=== PATIENT | male | born 1985 | race Hispanic/Latino ===

== ENCOUNTER 2017-03-05 07:44 | Emergency (ER) | payer OTHER ==
[2017-03-05 07:44] VITALS: BMI 22.3
[2017-03-05] MEDS ORDERED: Sodium Chloride 0.9% 1,000 ML IV STA (08:06)
[2017-03-05] MEDS ORDERED: HYDROmorphone 1 mg/ml ISec IVP ONE (08:07)
[2017-03-05] MEDS ORDERED: HYDROmorphone 1 mg/ml ISec ONE (08:08)
--- NOTE | 2017-03-05 08:11 | ED PDOC ---
Arrival/HPI - General Chief Complaint: Abdominal Pain Time Seen by Provider: 03/05/17 08:01 Historian: Patient - History of Present Illness Narrative History of Present Illness (Text): 03/05/17 08:08 pt p/w + sudden onset (yesterday) mild right flank pain, non-radiating; pain worsen this morning, currently pain is 6-7/10; pt states no fever/chills/sweats , no cp/sob/palpitations, no abd pain, no n/v, no numbness/tingling, no urinary/ bowel changes, no incontience, no dysuria/hematuria; no fall/trauma/sick contact , no travel; pt states symptoms of the flank pain felt like his prior renal stone attack pain; pt's last flank pain flare up was a few months ago; pt denied other complaints; p t is here for further eval. Time/Duration: < week (1-2 days) Symptom Onset: Sudden Symptom Course: Worsening Quality: Tightness, Stabbing Severity Level: 7, Severe Activities at Onset: Rest Context: Home Past Medical History - Provider Review Nursing Documentation Reviewed: Yes - Travel History Have you recently traveled outside [place] w/in the past 3 mons?: No - Past History Past History: No Previous - Infectious Disease Hx of Infectious Diseases: None - Tetanus Immunization Tetanus Immunization: Unknown - Past Medical History Past Medical History: No Previous - Genitourinary/Gynecological Other/Comment: kidney stone - Psychiatric Hx Psychophysiologic Disorder: No Hx Anxiety: No Hx Bipolar Disorder: No Hx Depression: No Hx Emotional Abuse: No Hx Hallucinations: No Hx Panic Disorder: No Hx Post Traumatic Stress Disorder: No Hx Psychosis: No Hx Physical Abuse: No Hx Schizophrenia: No Hx Sexual Abuse: No Hx Substance Use: No - Surgical History Hx Joint Replacement: Yes (right hip) - Anesthesia Hx Anesthesia: Yes Hx Anesthesia Reactions: No Hx Malignant Hyperthermia: No - Suicidal Assessment Feels Threatened In Home Enviroment: No Family/Social History - Physician Review Nursing Documentation Reviewed: Yes Family/Social History: No Known Family HX Smoking Status: Heavy Smoker > 10 Cigarettes Daily Hx Alcohol Use: No Hx Substance Use: Yes (Marijuana) Hx Substance Use Treatment: No Allergies/Home Meds Allergies/Adverse Reactions: Allergies No Known Allergies Allergy (Verified 03/05/17 08:05) Home Medications: Home Meds Medication Instructions Recorded Confirmed No Known Home Med 03/05/17 03/05/17 Review of Systems - Review of Systems Constitutional: Normal Eyes: Normal ENT: Normal Respiratory: Normal Cardiovascular: Normal Gastrointestinal: Normal Genitourinary Male: Normal Musculoskeletal: Other (right flank pain) Skin: Normal Neurological: Normal Endocrine: Normal Hemo/Lymphatic: Normal Psychiatric: Normal Physical Exam Vital Signs Reviewed: Yes Vital Signs Temp Pulse Resp BP Pulse Ox 03/05/17 09:30 71 17 153/61 H 100 03/05/17 07:59 97.5 F L 68 18 145/97 H 97 Temperature: Afebrile Blood Pressure: Hypertensive Pulse: Regular Respiratory Rate: Normal Appearance: Positive for: Well-Appearing, Uncomfortable, Other (alert/awake, GCS = 15, oriented x 3, uncomfortable, mild distress due to pain, cooperative, follows commands with ease) Pain Distress: Mild Mental Status: Positive for: Alert and Oriented X 3 - Systems Exam Head: Present: Atraumatic, Normocephalic Pupils: Present: PERRL Extroacular Muscles: Present: EOMI Conjunctiva: Present: Normal Ears: Present: Normal Mouth: Present: Moist Mucous Membranes, Normal Teeth Pharnyx: Present: Normal, Other (uvula/tongue are midline, no exudate/lesions, no drooling/stridor) Nose (External): Present: Atraumatic Nose (Internal): Present: Normal Inspection Neck: Present: Normal Range of Motion, Trachea Midline. No: MIDLINE TENDERNESS Respiratory/Chest: Present: Clear to Auscultation, Good Air Exchange Cardiovascular: Present: Regular Rate and Rhythm, Normal S1, S2 Abdomen: Present: Normal Bowel Sounds, Other (well nourished male, no focal tenderness, no masses/rebound/guarding/rigidity, no kapadia's sign, no mcburney' s point tenderness) Back: Present: Normal Inspection, CVA Tenderness (right CVAT; no midline tenderness, no step off, intact ROM). No: Midline Tenderness Upper Extremity: Present: Normal Inspection, Normal ROM, NORMAL PULSES, Neurovascularly Intact, Capillary Refill < 2s Lower Extremity: Present: Normal Inspection, NORMAL PULSES, Neurovascularly Intact, Capillary Refill < 2 s Neurological: Present: GCS=15, CN II-XII Intact, Speech Normal Skin: Present: Warm, Normal Color, Other (cap refill < 1sec, no uclerations, no petechiae). No: Rashes Psychiatric: Present: Alert, Oriented x 3 Medical Decision Making ED Course and Treatment: 03/05/17 08:15 Impression: right flank pain i have consider all the differential diagnosis regarding pt's chief medical complaints/clinical findings, including but are not limited to: right flank pain ; r/o stone, r/o infection, unlikely appy A/P: right flank pain - labs - iv - ct - ua - observe - supportive care 03/05/17 13:46 Dr Baron Garces is expecting patient and will be taking patient up to Same day surgery for further procedure will admit pt to same day surgery pt is currently comfortable pt is made aware of his medical results pt is encouraged fluids pt will f/u as directed Re-evaluation Time: 11:30 Reassessment Condition: Improved - Lab Interpretations Lab Results: 03/05/17 08:00 03/05/17 08:00 Lab Results 03/05/17 09:43: Urine Color Yellow, Urine Appearance Clear, Urine pH 6.5, Ur Specific [place] 1.020, Urine Protein Negative, Urine Glucose (UA) Negative, Urine Ketones Negative, Urine Blood Trace-intact H, Urine Nitrate Negative, Urine Bilirubin Negative, Urine Urobilinogen 0.2, Ur Leukocyte Esterase Negative , Urine RBC 1 - 3, Urine WBC Negative, Ur Epithelial Cells None, Urine Bacteria Few 03/05/17 08:00: PT 11.5, INR 1.00, APTT 30.7 03/05/17 08:00: Sodium 147, Potassium 4.2, Chloride 107, Carbon Dioxide 29, Anion Gap 15, BUN 16, Creatinine 1.0, Est GFR ( Amer) > 60, Est GFR (Non- Af Amer) > 60, Random Glucose 89, Calcium 10.6 H, Total Bilirubin 0.5, AST 31, ALT 36, Alkaline Phosphatase 90, Total Protein 7.8, Albumin 4.5, Globulin 3.3, Albumin/Globulin Ratio 1.4, Lipase 56 03/05/17 08:00: WBC 7.7 D, RBC 5.13, Hgb 15.6, Hct 46.0, MCV 89.7, MCH 30.4, MCHC 33.9, RDW 12.8, Plt Count 241, MPV 9.3, Gran % 59.7, Lymph % (Auto) 31.1, [place] % (Auto) 6.1 H, Eos % (Auto) 2.7, Baso % (Auto) 0.4, Gran # 4.62, Lymph # 2.4, [place] # 0.5, Eos # 0.2, Baso # 0.03 I have reviewed the lab results: Yes Interpretation: All labs normal - RAD Interpretation Radiology Orders: 03/05/17 08:06 ABD & PELVIS W/O PO OR IV CONT [CT] Stat This CT exam was performed using one or more of the following dose reduction techniques: Automated exposure control, adjustment of the mA and/or kV according to patient size, and/or use of iterative reconstruction technique. FINDINGS: LOWER THORAX: There is dependent atelectasis in the lung bases. LIVER: Normal in size. No gross lesion or ductal dilatation. GALLBLADDER AND BILE DUCTS: There are no calcified gallstones. PANCREAS: Normal in size. No calcifications or ductal dilatation. SPLEEN: Normal in size and appearance. ADRENALS: No discrete nodule. KIDNEYS AND URETERS: There is a 3 mm stone in the right distal ureteral proximal to the UV junction, moderate diffuse dilatation of the right ureteral, moderate hydronephrosis, mild edema and enlargement of the right kidney and mild perinephric fat stranding. The left kidney is normal in size without nephrolithiasis or hydronephrosis. VASCULATURE: No aortic aneurysm. BOWEL: The small bowel loops are all on the right side of the abdomen. The cecum is located to in the left mid abdomen. The ileocecal junction is normal. There is no evidence of bowel dilatation or obstruction. There is colonic diverticulosis without CT evidence for acute diverticulitis. . APPENDIX: Located in the left mid abdomen. Normal appendix. PERITONEUM: No free fluid. No free air. LYMPH NODES: No enlarged lymph nodes. BLADDER: Grossly normal in appearance. REPRODUCTIVE: The prostate gland is normal in size. BONES: No acute fracture. Multilevel Schmorl's nodes in the lower thoracic spine. Status post right hip arthroplasty. Old right inferior pubic ramus fracture. There is expansion of the left ischium which could be related to fibrous dysplasia or Paget's disease. There is also left hip dysplasia. OTHER FINDINGS: There are bilateral fat containing inguinal hernias. . IMPRESSION: 1. Findings are consistent with recent passage of 3 mm right renal stone which is now seen in the distal ureteral proximal to the UV junction with resultant moderate diffuse dilatation of the right ureteral, moderate hydronephrosis and perinephric inflammatory changes. 2. Malrotation. 3. Colonic diverticulosis without CT evidence for acute diverticulitis. 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 No Sleep Is patient sleeping during reassessment? No Presence of Pain Presence of Pain Yes Pain Scale Used Pain Scale Used Numeric Location Upper or Lower Lower Pain Location Body Site Back Description Intensity of Pain at present 6 IVP Administration Document 03/05/17 08:15 JO (Rec: 03/05/17 08:15 [id number] Charges for Administration # of IVP Administrations 1 Sodium Chloride (Sodium Chloride 0.9%) 1,000 mls @ 999 mls/hr IV .Q1H1M STA Stop: 03/05/17 09:06 Last Admin: 03/05/17 08:13 Dose: 999 mls/hr eMAR Start Stop Document 03/05/17 08:13 JOL (Rec: 03/05/17 08:14 [id number] Intravenous Solution Start Date 03/05/17 Start Time 08:13 End Date 03/05/17 End time 09:14 Total Infusion Time 61 Sodium Chloride (Sodium Chloride 0.45%) 1,000 mls @ 80 mls/hr IV .[id number] [facility] Ketorolac Tromethamine (Toradol) 30 mg IVP STAT STA Stop: 03/05/17 08:07 Last Admin: 03/05/17 08:14 Dose: 30 mg MAR Pain Assessment Document 03/05/17 08:14 JOL (Rec: 03/05/17 08:14 [id number] Pain Reassessment Is this a pain reassessment? No Sleep Is patient sleeping during reassessment? No Presence of Pain Presence of Pain Yes Pain Scale Used Pain Scale Used Numeric Location Upper or Lower Lower Pain Location Body Site Back Description Intensity of Pain at present 6 IVP Administration Document 03/05/17 08:14 JOL (Rec: 03/05/17 08:14 [id number] Charges for Administration # of IVP Administrations 1 Ondansetron HCl (Zofran Inj) 4 mg IVP STAT STA Stop: 03/05/17 08:08 Last Admin: 03/05/17 08:15 Dose: 4 mg IVP Administration Document 03/05/17 08:15 JOL (Rec: 03/05/17 08:15 [id number]) Charges for Administration # of IVP Administrations 1 Oxycodone/Acetaminophen (Percocet 5/325 Mg Tab) 1 tab PO Q6H PRN PRN Reason: Pain, moderate (4-7) Stop: 03/08/17 13:29 Disposition/Present on Arrival - Present on Arrival Any Indicators Present on Arrival: No History of DVT/PE: No History of Uncontrolled Diabetes: No Urinary Catheter: No History of Decub. Ulcer: No History Surgical Site Infection Following: None - Disposition Have Diagnosis and Disposition been Completed?: Yes Diagnosis: Ureteral stone with hydronephrosis, Flank pain Disposition: HOSPITALIZED Disposition Time: 11:30 Patient Plan: Admission (Same day surgery) Condition: STABLE Discharge Instructions (ExitCare): Renal Colic (ED), Hydronephrosis (ED), Ureteral Stones (ED) Print Language: ZAMBIAN Additional Instructions: Make sure to see your doctor in 1-2 days DRINK PLENTY OF FLUIDS take your medications as prescribed RETURN TO ED IF worse pain, cant breath, persistent vomiting, high fever >101- 102 for hours, altered behavior, unable to urinate, heavy/persistent bleeding, passing out, chest pain, or other medical emergencies Forms: [employer] (Pakistani)
[2017-03-05 08:28] LABS: BASO # 0.03 K/mm3 (0.0-2.0); BASO % 0.4 % (0.0-3.0); EOS # 0.2 (0.0-0.7); EOS % 2.7 % (1.5-5.0); GRAN # 4.62 (1.4-6.5); GRAN % 59.7 % (50.0-68.0); HEMOGLOBIN 15.6 g/dL (14.0-18.0); LYMPH # 2.4 (1.2-3.4); LYMPH % 31.1 % (22.0-35.0); MEAN CELL VOLUME 89.7 fl (80.0-105.0); MEAN CORPUSCULAR HEMOGLOBIN 30.4 pg (25.0-35.0); MEAN CORPUSCULAR HGB CONC 33.9 g/dl (31.0-37.0); MEAN PLATELET VOLUME 9.3 fl (7.0-11.0); MONO # 0.5 (0.1-0.6); MONO % 6.1 % (1.0-6.0); RBC 5.13 10^6/uL (3.5-6.1); RED CELL DISTRIBUTION WIDTH 12.8 % (11.5-14.5); WHITE BLOOD COUNT 7.7 10^3/ul (4.5-11.0)
[2017-03-05 08:39] LABS: ALB/GLOB RATIO 1.4 (1.1-1.8); ALBUMIN 4.5 g/dL (3.0-4.8); ALT/SGPT 36 U/L (7-56); AST/SGOT 31 U/L (17-59); BLOOD UREA NITROGEN 16 mg/dL (7-21); CALCIUM 10.6 mg/dL (8.4-10.5); GFR AFRICAN-AMERICAN > 60; GFR NON-AFRICAN AMERICAN > 60; LIPASE 56 U/L (23-300)
[2017-03-05 08:43] LABS: PARTIAL THROMBOPLASTIN TIME 30.7 Seconds (25.1-36.5); PROTHROMBIN TIME 11.5 SECONDS (9.4-12.5)
--- NOTE | 2017-03-05 09:22 | CT ---
PROCEDURE: CT Abdomen and Pelvis without intravenous contrast HISTORY: right flank pain, hx of stones COMPARISON: 09/16/2014 TECHNIQUE: CT scan of the abdomen and pelvis was performed without administration of intravenous contrast. Oral contrast was administered. Coronal and sagittal reformatted images were obtained. Radiation dose: Total exam DLP = 362.05 mGy-cm. This CT exam was performed using one or more of the following dose reduction techniques: Automated exposure control, adjustment of the mA and/or kV according to patient size, and/or use of iterative reconstruction technique. FINDINGS: LOWER THORAX: There is dependent atelectasis in the lung bases. LIVER: Normal in size. No gross lesion or ductal dilatation. GALLBLADDER AND BILE DUCTS: There are no calcified gallstones. PANCREAS: Normal in size. No calcifications or ductal dilatation. SPLEEN: Normal in size and appearance. ADRENALS: No discrete nodule. KIDNEYS AND URETERS: There is a 3 mm stone in the right distal ureteral proximal to the UV junction, moderate diffuse dilatation of the right ureteral, moderate hydronephrosis, mild edema and enlargement of the right kidney and mild perinephric fat stranding. The left kidney is normal in size without nephrolithiasis or hydronephrosis. VASCULATURE: No aortic aneurysm. BOWEL: The small bowel loops are all on the right side of the abdomen. The cecum is located to in the left mid abdomen. The ileocecal junction is normal. There is no evidence of bowel dilatation or obstruction. There is colonic diverticulosis without CT evidence for acute diverticulitis. . APPENDIX: Located in the left mid abdomen. Normal appendix. PERITONEUM: No free fluid. No free air. LYMPH NODES: No enlarged lymph nodes. BLADDER: Grossly normal in appearance. REPRODUCTIVE: The prostate gland is normal in size. BONES: No acute fracture. Multilevel Schmorl's nodes in the lower thoracic spine. Status post right hip arthroplasty. Old right inferior pubic ramus fracture. There is expansion of the left ischium which could be related to fibrous dysplasia or Paget's disease. There is also left hip dysplasia. OTHER FINDINGS: There are bilateral fat containing inguinal hernias. . IMPRESSION: 1. Findings are consistent with recent passage of 3 mm right renal stone which is now seen in the distal ureteral proximal to the UV junction with resultant moderate diffuse dilatation of the right ureteral, moderate hydronephrosis and perinephric inflammatory changes. 2. Malrotation. 3. Colonic diverticulosis without CT evidence for acute diverticulitis.
[2017-03-05 09:53] LABS: PH,URINE 6.5 (4.7-8.0); URINE APPEARANCE CLEAR (CLEAR); URINE BILIRUBIN NEGATIVE (NEGATIVE); URINE BLOOD TRACE-INTACT (NEGATIVE); URINE COLOR YELLOW (YELLOW); URINE GLUCOSE (UA) NEGATIVE (NEGATIVE); URINE LEUKOCYTE ESTERASE NEGATIVE Leu/uL (NEGATIVE); URINE NITRATE NEGATIVE (NEGATIVE); URINE PROTEIN NEGATIVE mg/dL (<30 mg/dL); URINE UROBILINOGEN 0.2 E.U./dL (<1 E.U./dL)
[2017-03-05 09:58] LABS: URINE BACTERIA FEW (NEG); URINE WBC NEGATIVE /hpf (0-6)
[2017-03-05] MEDS ORDERED: Midazolam 2 MG/2 ML VIAL ONE ×3 (10:25→12:36)
[2017-03-05] MEDS ORDERED: Lidocaine 2% Inj (20ml) ONE ×2 (10:25→12:42)
[2017-03-05] MEDS ORDERED: Iodixanol 320 MG/ML 100 ML BOTTLE IV ONE (10:26)
[2017-03-05] MEDS ORDERED: HEPARIN SODIUM/NS 2,000 ML IV ONE (10:26)
[2017-03-05] MEDS ORDERED: Oxycodone/Acetaminophen 5/325 mg Tab PO PRN (13:28)
[2017-03-05] MEDS ORDERED: Sodium Chloride 0.45% 1,000 ML IV SCH (13:30)
[2017-03-05 14:23] VITALS: RESP 18; O2SAT 98
[2017-03-05 16:28] VITALS: BP 141/83; PULSE 64; TEMP 98.2
--- NOTE | 2017-03-09 10:07 | VASCULAR ---
PROCEDURE: 1. Right nephrostomy tube placement. 2. Distal right ureter dilatation HISTORY: Impacted stone at the right UVJ with moderate hydronephrosis. Unable to treat via cystoscopy. PHYSICIAN(S): Wayne Garces MD. TECHNIQUE: The relative risks and indications of the procedure were explained to the patient and consent obtained. The patient was placed prone on the arteriogram table and the right back and flank prepped and draped in the usual sterile fashion. Conscious sedation and monitoring were provided throughout the procedure by a nurse. A single pass with a 21-gauge needle was performed and the right renal pelvis was entered. Clear urine was aspirated. Contrast was injected and an antegrade pyelogram performed. A second puncture site involving a right lower polecalyx was selected for tube placement. 1% Xylocaine was used to anesthetize the skin and soft tissues. An 18-gauge needle was advanced under fluoroscopy into a right lower polecalyx. A 0.035 angled guidewire was coiled within the renal pelvis. Next a 5 Brazilian angled catheter was advanced down the right ureter to the UVJ. There is an impacted 5 mm stone in the right UVJ. With some difficulty a guidewire was passed through the obstructing stone. Next 4 and 5 mm balloons were used to dilate the right UVJ and attempt to displace the obstructing right UVJ stone. The stone could not be dislodged. A 10 Brazilian nephrostomy tube was coiled in the right renal pelvis. The tube was flushed and secured. The patient tolerated the procedure well. FINDINGS: There is moderate to severe right hydronephrosis. There is a 5 mm obstructing stone impacted at the right UVJ. Spite attempts with balloons, the stone could not be dislodged. A 10 Brazilian nephrostomy tube was placed in the right renal pelvis. IMPRESSION: 1.Moderate to severe right hydronephrosis. A 5 mm impacted stone is noted at the right UVJ. This could not be dislodged removed with 4 and 5 mm balloons. 2. Right percutaneous nephrostomy tube placement
== END 2017-03-05 09:36 | disposition short-term general hospital (02) ==
LOC: ED 07:44
DX: N13.2 Hydronephrosis with renal and ureteral calculous obstruction (principal); R10.9 Unspecified abdominal pain
CPT/HCPCS: 50432; 50706; 74176; 80053; 81001; 83690; 85025; 85610; 85730; 96361; 96374; 96375; 99152; 99153; 99285; A4358; C1725; C1729; C1769; C1894; J1170; J1644; J1885; J2250; J2405; J3010; J7030; J7040; Q9967

== ENCOUNTER 2017-05-24 06:28 | Day surgery (SDC) | payer OTHER ==
[2017-05-05 12:14] VITALS: BMI 22.4
[2017-05-24 07:11] LABS: BLOOD UREA NITROGEN 15 mg/dL (7-21); CALCIUM 9.8 mg/dL (8.4-10.5); GFR AFRICAN-AMERICAN > 60; GFR NON-AFRICAN AMERICAN > 60
--- NOTE | 2017-05-24 08:25 | RAD ---
HISTORY: PRE-OP COMPARISON: No prior. FINDINGS: LUNGS: The lungs are clear. PLEURA: No significant pleural effusion identified, no pneumothorax apparent. CARDIOVASCULAR: Normal. OSSEOUS STRUCTURES: No significant abnormalities. VISUALIZED UPPER ABDOMEN: Normal. OTHER FINDINGS: None. IMPRESSION: No active pulmonary disease.
[2017-05-24] MEDS ORDERED: Propofol 10 mg/ml Inj (20 ML) ONE ×2 (10:02→14:38)
[2017-05-24] MEDS ORDERED: Midazolam 2 MG/2 ML VIAL ONE ×2 (10:03→14:38)
[2017-05-24] MEDS ORDERED: cefTRIAXone (Rocephin) 1 gm Inj ONE ×2 (11:18→14:38)
[2017-05-24] MEDS ORDERED: cefTRIAXone 1 gm 1 GM/100 ML BAG IVPB STA (11:21)
[2017-05-24] MEDS ORDERED: cefTRIAXone (Rocephin) 1 gm Inj IVPB ONE (11:23)
[2017-05-24] MEDS ORDERED: Morphine 2 mg/ml ISec IVP PRN (14:33)
[2017-05-24] MEDS ORDERED: Iohexol 240 (50 ml) ONE (14:38)
[2017-05-24] MEDS ORDERED: Gentamicin 80 mg/2mL Inj. ONE (14:38)
[2017-05-24] MEDS ORDERED: Rocuronium 10 mg/ml (5 ml) ONE (14:39)
[2017-05-24] MEDS ORDERED: Lactated Ringer's 1,000 ML IV SCH (14:45)
[2017-05-24] MEDS ORDERED: Glycopyrrolate 0.2 mg/ml (2ml vial) ONE (15:49)
[2017-05-24] MEDS ORDERED: Neostigmine Methylsulfate 3mg/3ml Syringe IV ONE (15:50)
[2017-05-24] MEDS ORDERED: Lidocaine 2% Jelly (Uro-Jet) ONE (16:36)
[2017-05-24 17:53] VITALS: PULSE 77; RESP 20; TEMP 97.9; O2SAT 94
[2017-05-24 18:39] VITALS: BP 147/83
--- NOTE | 2017-05-25 08:23 | OP ---
PROCEDURE DATE: 05/24/2017 PREOPERATIVE DIAGNOSES: Right ureteral calculus and urethral stricture. POSTOPERATIVE DIAGNOSES: Right ureteral calculus and urethral stricture. PROCEDURE: A nephrostogram, antegrade ureteroscopy and change of a nephrostomy tube. ATTENDING SURGEON: Jericho Dowd MD ASSISTED BY: Dr. Wayne Garces of Interventional Radiology. SPECIMENS: There were none. DRAINS: A nephrostomy tube in the right kidney. COMPLICATIONS: There were none. OPERATIVE FINDINGS: After informed consent was obtained, the patient was taken to the operating room, placed on the operating table. Anesthesia was administered. Patient was then placed in the left lateral decubitus position with left side down, the right side up. He was positioned and checked regarding pressure points and axillary roll was placed. He was then prepped and draped in usual sterile fashion. A nephrostogram was performed. There was noted to be an obstruction in the distal right ureter just above the bladder, tiny wisp of contrast was able to be seen passing into the bladder. At this point, multiple attempts were made to pass the wire beyond the obstruction. Dr. Garces assisted with this and after the wire was passed down the ureter, the nephrostomy was removed. Using Vizcaino catheter for support, we were able to pass a wire beyond the stone into and coiled in the bladder. A second open-ended catheter was then able to be passed and an Amplatz stiff wire was then able to be passed. It was also able to be passed beyond the stone and coiled in the bladder. With the two wires in place, a ureteral access sheath was then obtained. The ureteral access sheath obturator first was passed easily down the ureter, which was markedly dilated. The sheath was then removed and the ureteral access sheath with the obturator were able to be easily passed through the skin down the ureter to the point just above the stone over the second wire leaving the Amplatz wire outside as a safety wire. At this point, the obturator was removed. A flexible ureteroscope was obtained. The flexible ureteroscope was then passed over the wire through the access sheath down the ureter without difficulty. In the distal ureter, there was a large amount of edema noted. Multiple attempts were made to bypass the obstruction, a tiny movement could be seen, there was no visible stone. The ureteroscope was not able to be passed beyond the point of obstruction and no discrete calculus could be visualized. Therefore, no lithotripsy was performed. After multiple attempts to pass the scope were unsuccessful, the procedure was then abandoned. The ureteroscope and guidewire were then removed and Dr. Garces then was able to place a nephrostomy over the remaining wire. With the nephrostomy was in proper position, the wire was removed and the nephrostomy was secured by tying the string and curling the loop. Contrast was placed into the system and the nephrostomy was located in the right renal pelvis. The nephrostomy tube was then placed to straight drainage. Sterile dressing was then applied to the nephrostomy tube site and the nephrostomy tube was sutured into place with a silk suture. At this point, the patient was returned to the supine position. Attempts were made to pass a Mulligan catheter. A 16 Namibian was attempted, but was meeting resistance, I was able to pass a 14-Namibian catheter and drain patient's bladder, after the procedure, of approximately 250 mL of urine. The Mulligan was then removed. Patient received intravenous antibiotics prior to the start of the procedure. At this point, procedure was completed. The patient was awakened in the operating room and taken to the recovery room awake and in a stable condition. Jericho Dowd MD
--- NOTE | 2017-05-25 18:11 | RAD ---
PROCEDURE: Fluoroscopy up to 1 hr. HISTORY: ATTEMPTED LASER LITHOTRIPSY / NEPHROSTOMY CHANGE (RIGHT) COMPARISON: None TECHNIQUE: Total fluoroscopic time (continuous mode) utilized during the procedure 818.5 seconds. Total exam DLP: (mGy) 782.98 FINDINGS: Submitted images from the current procedure: 5.0 IMPRESSION: Less than 1 hr fluoroscopic time utilized during performance of the procedure.
== END 2017-05-24 19:00 | disposition home or self-care (01) ==
LOC: SDS 06:28
PROVIDERS: ATTEND Urology
DX: N20.1 Calculus of ureter (principal); N35.9 Urethral stricture, unspecified
CPT/HCPCS: 36415; 50431; 50435; 71045; 76000; 80048; J0696; J1580; J2001; J2250; J2270; J2704; J2710; J3010; J7120 ×2; Q9966

== ENCOUNTER 2017-08-22 22:59 | Inpatient (IN) | payer OTHER ==
[2017-08-22 23:16] VITALS: BMI 21.6
--- NOTE | 2017-08-23 | ED PDOC ---
Arrival/HPI - General Chief Complaint: Male Genitourinary Time Seen by Provider: 08/22/17 23:50 Historian: Patient - History of Present Illness Narrative History of Present Illness (Text): 08/23/17 00:00 Dae Mederos is a 31 year old male, whose past medical history includes rhabomyosarcoma (in remission), nephrolithiasis, and ureteral stent placement, who presents to the Emergency department complaining of fever. Patient states he recently underwent right ureteral reconstruction due to complications secondary to an obstructing kidney stone/scar tissue from radiation on 08/16/17 at [facility] and was discharged home with a Mulligan catheter in place. Patient states today he has been experiencing generalized malaise with associated fever and chills since 19:00. Patient denies any back pain, abdominal pain, nausea, vomiting, diarrhea, chest pain, shortness of breath, ot any other complaints. Urology: Dr. Dowd, Dr. Maciel Symptom Onset: Gradual Symptom Course: Unchanged Activities at Onset: Light Context: Home Past Medical History - Provider Review Nursing Documentation Reviewed: Yes - Past History Past History: No Previous - Infectious Disease Hx of Infectious Diseases: None - Tetanus Immunization Tetanus Immunization: Unknown - Past Medical History Past Medical History: No Previous - Neurological Hx Paralysis: No - Hematological/Oncological Hx Blood Transfusions: No - Musculoskeletal/Rheumatological Hx Musculoskeletal Disorders: No - Genitourinary/Gynecological Other/Comment: kidney stone - Psychiatric Hx Emotional Abuse: No Hx Physical Abuse: No Hx Substance Use: No (DENIES) - Surgical History Hx Joint Replacement: Yes (right hip) - Anesthesia Hx Anesthesia Reactions: No Hx Malignant Hyperthermia: No - Suicidal Assessment Feels Threatened In Home Enviroment: No Family/Social History - Physician Review Nursing Documentation Reviewed: Yes Family/Social History: Unknown Family HX Smoking Status: Heavy Smoker > 10 Cigarettes Daily Hx Alcohol Use: No Hx Substance Use: No (DENIES) Hx Substance Use Treatment: No Allergies/Home Meds Allergies/Adverse Reactions: Allergies Penicillins Adverse Reaction (Verified 08/23/17 05:36) ITCHING piperacillin [From Zosyn] Adverse Reaction (Verified 08/23/17 04:47) VOMITING tazobactam [From Zosyn] Adverse Reaction (Verified 08/23/17 04:47) VOMITING Home Medications: Home Meds Medication Instructions Recorded Confirmed No Known Home Med 08/22/17 08/22/17 Review of Systems - Physician Review All systems were reviewed & negative as marked: Yes - Review of Systems Constitutional: Fevers, Other (+chills) Eyes: Normal ENT: Normal Respiratory: Normal. absent: SOB, Cough Cardiovascular: Normal. absent: Chest Pain Gastrointestinal: Normal. absent: Abdominal Pain, Diarrhea, Nausea, Vomiting Genitourinary Male: Normal Musculoskeletal: Normal Skin: Normal Neurological: Normal Endocrine: Normal Hemo/Lymphatic: Normal Psychiatric: Normal Physical Exam Vital Signs Reviewed: Yes Vital Signs Temp Pulse Resp BP Pulse Ox 08/23/17 04:49 97 H 18 99 08/23/17 03:30 98.9 F 94 H 17 129/89 99 08/23/17 01:00 99 H 19 136/88 99 08/23/17 00:59 100.9 F H 08/22/17 23:30 100.9 F H 100 H 18 121/81 98 Temperature: Febrile Blood Pressure: Normal Pulse: Regular Respiratory Rate: Normal Appearance: Positive for: Well-Appearing, Non-Toxic, Comfortable Pain Distress: None Mental Status: Positive for: Alert and Oriented X 3 - Systems Exam Head: Present: Atraumatic, Normocephalic Pupils: Present: PERRL Extroacular Muscles: Present: EOMI Conjunctiva: Present: Normal Mouth: Present: Moist Mucous Membranes Neck: Present: Normal Range of Motion Respiratory/Chest: Present: Clear to Auscultation, Good Air Exchange. No: Respiratory Distress, Accessory Muscle Use Cardiovascular: Present: Regular Rate and Rhythm, Normal S1, S2. No: Murmurs Abdomen: Present: Tenderness (mild to mid & lower abdomen), Other (Robotic surgery sites in abdomen). No: Distention, Peritoneal Signs Genitourinary Male: Present: Normal External Genitalia, Other (Mulligan in place) Back: Present: Normal Inspection Upper Extremity: Present: Normal Inspection. No: Cyanosis, Edema Lower Extremity: Present: Normal Inspection. No: Edema Neurological: Present: GCS=15, CN II-XII Intact, Speech Normal Skin: Present: Warm, Dry, Normal Color. No: Rashes Psychiatric: Present: Alert, Oriented x 3, Normal Insight, Normal Concentration Medical Decision Making ED Course and Treatment: 08/23/17 00:00 Impression: 31 year old male complaining of fever, chills, generalized malaise, and discomfort at Mulligan site. Plan: -- CT Abdomen and Pelvis w/o contrast -- EKG -- Chest X-ray -- Labs, VBG, blood cultures -- Urinalysis, urine cultures -- IV fluids -- Tylenol -- Reassess and disposition Prior Visits: Notes and results from previous visits were reviewed. Progress Notes: 08/23/17 02:08 CT Abdomen and Pelvis shows: Lung bases: Unremarkable. Heart: Minimal pericardial effusion. ABDOMEN: Liver: Enlarged fatty liver. Gallbladder and bile ducts: Contracted gallbladder with gallstones. Pancreas: Unremarkable. No ductal dilation. Spleen: Unremarkable. No splenomegaly. Adrenals: Unremarkable. No mass. Kidneys and ureters: The Right lower pole renal cortical scarring. No obstructing stones. No hydronephrosis. Stomach and bowel: Diverticulosis. No obstruction. No mucosal thickening. PELVIS: Appendix: Normal appendix located in the left lower quadrant. Bladder: There is Mulligan catheter in the bladder. There is right-sided double J stent. Reproductive: Unremarkable. ABDOMEN and PELVIS: Intraperitoneal space: There is free intraperitoneal air. 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 No significant fluid collection. Bones/joints: Right hip prosthesis. The femoral component is incompletely seen. Remote fracture deformity of bilateral pubic rami. Partial defect at L5. No dislocation. Soft tissues: Bilateral inguinal herniation of fat. Asymmetric atrophy of the right thigh muscles. There is anterior abdominal wall umbilical and left lower quadrant subcutaneous infiltration. Vasculature: The aorta is normal in caliber and there are no meghan-aortic collections. No abdominal aortic aneurysm. Lymph nodes: Unremarkable. No enlarged lymph nodes. Tubes, lines and devices: There is a right renal double J. ureteral stent. IMPRESSION: 1. There is free intraperitoneal air. The etiology of this is unclear. 2. Right-sided double J stent. Spoke with [facility] radiologist regarding CT scan findings, possible intraperitoneal air. Pt started on prophylatic antibiotics. Case discussed with rn surgical pcu concrete mixer operator, who is aware and agrees to evaluate pt. 08/23/17 02:45 Spoke with rn surgical pcu, who saw and evaluated pt. surgeon/president spoke with Dr. Mabry, states free air is not uncommon following recent surgery. Call placed to Dr. Cabrera's service, awaiting call back. Call placed to medical service concrete mixer operator, who requests pt go to hospitalist service. 08/23/17 03:[address] Calixto, who is aware and agrees with plan. Accepts pt in to hospitalist service. Pt will be admitted to [facility] for fever and leukocytosis. resident care technician notified. 08/23/17 03:40 Reviewed EKG, NSR at 86 bpm. Occasional PAC. No acute changes. - Lab Interpretations Lab Results: 08/23/17 00:38 08/23/17 00:38 Lab Results 08/23/17 00:38: Sodium 142, Chloride 101, Potassium 4.1, Carbon Dioxide 26, Anion Gap 19, BUN 20, Creatinine 1.2, Est GFR ( Amer) > 60, Est GFR (Non- Af Amer) > 60, Random Glucose 124 H, Calcium 9.7, Total Bilirubin 0.9, AST 37, ALT 33, Alkaline Phosphatase 89, Total Protein 8.2, Albumin 4.7, Globulin 3.5, Albumin/Globulin Ratio 1.3 08/23/17 00:38: pO2 32, VBG pH 7.33, VBG pCO2 52.0, VBG HCO3 27.4, VBG Total CO2 29.0 H, VBG O2 Sat (Calc) 63.8, VBG Base Excess 0.6, VBG Potassium 4.1, Sodium 139.0, Chloride 103.0, Glucose 125 H, Lactate 1.8, FiO2 21.0, Venous Blood Potassium 4.1 08/23/17 00:38: Urine Color Yellow, Urine Appearance Sl cloudy, Urine pH 6.5, Ur Specific [place] <= 1.005, Urine Protein 30 H, Urine Glucose (UA) Negative, Urine Ketones Negative, Urine Blood Large H, Urine Nitrate Positive H, Urine Bilirubin Negative, Urine Urobilinogen 0.2, Ur Leukocyte Esterase Large H, Urine RBC 2 - 5, Urine WBC 5 - 10, Ur Epithelial Cells 0 - 2, Urine Bacteria Small 08/23/17 00:38: PT 13.3 H, INR 1.16 H, APTT 32.2 08/23/17 00:38: WBC 16.6 H D, RBC 4.82, Hgb 14.7, Hct 42.0, MCV 87.1, MCH 30.5, MCHC 35.0, RDW 12.8, Plt Count 291, MPV 9.1, Gran % 80.2 H, Lymph % (Auto) 11.0 L, Will % (Auto) 8.1 H, Eos % (Auto) 0.5 L, Baso % (Auto) 0.2, Gran # 13.32 H, Lymph # (Auto) 1.8, Will # (Auto) 1.3 H, Eos # (Auto) 0.1, Baso # (Auto) 0.03 I have reviewed the lab results: Yes - RAD Interpretation Radiology Orders: 08/23/17 00:04 CHEST PORTABLE [RAD] Stat 08/23/17 00:11 ABD & PELVIS W/O PO OR IV CONT [CT] Stat Digital Retoucher: Radiologist - Medication Orders Current Medication Orders: Acetaminophen (Tylenol 325mg Tab) 650 mg PO Q4H PRN PRN Reason: Fever >100.4 F Sodium Chloride (Sodium Chloride 0.9%) 1,000 mls @ 150 mls/hr IV .Q6H40M GRAHAM Last Admin: 08/23/17 00:59 Dose: 150 mls/hr eMAR Start Stop Document 08/23/17 00:59 [email or web address] (Rec: 08/23/17 00:59 [facility] ) Intravenous Solution Start Date 08/23/17 Start Time 00:59 Meropenem (Merrem Iv 1 Gm Premix) 50 mls @ 100 mls/hr IVPB Q8 GRAHAM PRN Reason: Protocol Stop: 08/23/17 14:29 Vancomycin HCl (Vancomycin 750 Mg In Ns) 750 mg in 250 mls @ 167 mls/hr IVPB Q12H GRAHAM PRN Reason: Protocol Ondansetron HCl (Zofran Inj) 4 mg IVP Q4H PRN PRN Reason: Nausea/Vomiting Pantoprazole Sodium (Protonix Inj) 40 mg IVP DAILY GRAHAM Discontinued Medications Acetaminophen (Tylenol 325mg Tab) 650 mg PO STAT STA Stop: 08/23/17 00:06 Last Admin: 08/23/17 00:59 Dose: 650 mg MAR Pain/Vitals Document 08/23/17 00:59 [email or web address] (Rec: 08/23/17 00:59 [facility] ) Vitals Temperature (97.6 F-99.6 F) 100.9 F Temperature Source Oral Piperacillin Sod/Tazobactam Sod (Zosyn 3.375 In Ns 100ml) 100 mls @ 200 mls/hr IV STAT STA PRN Reason: Protocol Stop: 08/23/17 02:40 Last Admin: 08/23/17 04:17 Dose: Vancomycin HCl (Vancomycin 1gm) 1 gm in 250 mls @ 133.333 mls/hr IVPB STAT STA PRN Reason: Protocol Stop: 08/23/17 04:05 Last Admin: 08/23/17 04:42 Dose: 133.333 mls/hr eMAR Start Stop Document 08/23/17 04:42 [email or web address] (Rec: 08/23/17 04:42 [email or web address] [facility]) Intravenous Solution Start Date 08/23/17 Start Time 04:42 End Date 08/23/17 - Scribe Statement The provider has reviewed the documentation as recorded by the Scribe Susi Pastor Provider Scribe Attestation: All medical record entries made by the Scribe were at my direction and personally dictated by me. I have reviewed the chart and agree that the record accurately reflects my personal performance of the history, physical exam, medical decision making, and the department course for this patient. I have also personally directed, reviewed, and agree with the discharge instructions and disposition. Disposition/Present on Arrival - Present on Arrival Any Indicators Present on Arrival: No History of DVT/PE: No History of Uncontrolled Diabetes: No Urinary Catheter: No History of Decub. Ulcer: No History Surgical Site Infection Following: None - Disposition Have Diagnosis and Disposition been Completed?: Yes Diagnosis: Fever, Leukocytosis, Abdominal pain Disposition: HOSPITALIZED Disposition Time: 03:10 Patient Plan: Admission Patient Problems: Current Active Problems Problem Status Onset Abdominal pain Acute Fever Acute Leukocytosis Acute Condition: STABLE
[2017-08-23 00:55] LABS: VENOUS BLOOD GAS BASE EXCESS 0.6 mmol/L (0.0-2.0); VENOUS BLOOD GAS PO2 32 mm/Hg (30-55); VENOUS BLOOD PH 7.33 (7.32-7.43)
[2017-08-23 00:58] LABS: BASO # 0.03 K/mm3 (0.0-2.0); BASO % 0.2 % (0.0-3.0); EOS # 0.1 (0.0-0.7); EOS % 0.5 % (1.5-5.0); GRAN # 13.32 (1.4-6.5); GRAN % 80.2 % (50.0-68.0); HEMOGLOBIN 14.7 g/dL (14.0-18.0); LYMPH # 1.8 (1.2-3.4); MEAN CELL VOLUME 87.1 fl (80.0-105.0); MEAN CORPUSCULAR HEMOGLOBIN 30.5 pg (25.0-35.0); MEAN PLATELET VOLUME 9.1 fl (7.0-11.0); MONO # 1.3 (0.1-0.6); MONO % 8.1 % (1.0-6.0); RBC 4.82 10^6/uL (3.5-6.1); RED CELL DISTRIBUTION WIDTH 12.8 % (11.5-14.5); WHITE BLOOD COUNT 16.6 10^3/ul (4.5-11.0)
[2017-08-23] MEDS: Sodium Chloride 0.9% 1,000 ML IV SCH ×2 (00:59→06:37)
[2017-08-23 01:00] LABS: PH,URINE 6.5 (4.7-8.0); URINE BILIRUBIN NEGATIVE (NEGATIVE); URINE BLOOD LARGE (NEGATIVE); URINE GLUCOSE (UA) NEGATIVE (NEGATIVE); URINE LEUKOCYTE ESTERASE LARGE Leu/uL (NEGATIVE); URINE PROTEIN 30 mg/dL (<30 mg/dL); URINE UROBILINOGEN 0.2 E.U./dL (<1 E.U./dL)
[2017-08-23 01:03] LABS: ALB/GLOB RATIO 1.3 (1.1-1.8); ALBUMIN 4.7 g/dL (3.0-4.8); ALT/SGPT 33 U/L (7-56); AST/SGOT 37 U/L (17-59); BLOOD UREA NITROGEN 20 mg/dL (7-21); CALCIUM 9.7 mg/dL (8.4-10.5); GFR AFRICAN-AMERICAN > 60; GFR NON-AFRICAN AMERICAN > 60
[2017-08-23 01:06] LABS: INR 1.16 (0.93-1.08); PARTIAL THROMBOPLASTIN TIME 32.2 Seconds (25.1-36.5); PROTHROMBIN TIME 13.3 SECONDS (9.4-12.5); URINE APPEARANCE SL CLOUDY (CLEAR); URINE COLOR YELLOW (YELLOW)
[2017-08-23 01:17] LABS: URINE BACTERIA SMALL (NEG); URINE EPITHELIAL CELLS 0 - 2 /hpf (0-5)
[2017-08-23] MEDS ORDERED: Vancomycin 1gm in NS 250ml 1 GM/250 ML BAG IVPB STA (02:13)
[2017-08-23] MEDS: Piperacillin/Tazobact 3.375 gm 100 ML IV STA ×2 (02:49→04:17)
--- NOTE | 2017-08-23 03:18 | CP.PCM.CON ---
History of Present Illness - History of Present Illness History of Present Illness: General Surgery Consult note Mr. Mederos is a 31 yr old male with PMH of kidney stones, nephrostomy tube and recent ureteroreconstructive surgery on 08/16/[address] Olguin at [facility]. Patient states that he has been having dribbling from around his indwelling erickson since the surgery and Dr. Olguin indicated that this was to be expected due to the small size of the tibe needed. Patient states that this morning he began to have fever and chills as well as abdominal pain. He localizes the pain over the inferior central portion of his abdomen. He denies nausea, vomiting, changes in stool, and decreased urine output. Past Patient History - Infectious Disease Hx of Infectious Diseases: None - Tetanus Immunizations Tetanus Immunization: Unknown - Past Social History Smoking Status: Heavy Smoker > 10 Cigarettes Daily - NEUROLOGICAL Hx Paralysis: No - HEMATOLOGICAL/ONCOLOGICAL Hx Blood Transfusions: No - MUSCULOSKELETAL/RHEUMATOLOGICAL Hx Musculoskeletal Disorders: No - GENITOURINARY/GYNECOLOGICAL Other/Comment: kidney stone - PSYCHIATRIC Hx Emotional Abuse: No Hx Physical Abuse: No Hx Substance Use: No (DENIES) - SURGICAL HISTORY Hx Joint Replacement: Yes (right hip) - ANESTHESIA Hx Anesthesia Reactions: No Hx Malignant Hyperthermia: No Meds Allergies/Adverse Reactions: Allergies Allergy/AdvReac Type Severity Reaction Status Date / Time No Known Allergies Allergy Verified 08/22/17 23:16 - Medications Medications: Current Medications Sodium Chloride (Sodium Chloride 0.9%) 1,000 mls @ 150 mls/hr IV .Q6H40M GRAHAM Last Admin: 08/23/17 00:59 Dose: 150 mls/hr Vancomycin HCl (Vancomycin 1gm) 1 gm in 250 mls @ 133.333 mls/hr IVPB STAT STA PRN Reason: Protocol Stop: 08/23/17 04:05 Results - Vital Signs Recent Vital Signs: Last Vital Signs Temp 100.9 F H 08/23/17 00:59 Pulse 100 H 08/22/17 23:30 Resp 18 08/22/17 23:30 BP 121/81 08/22/17 23:30 Pulse Ox 98 08/22/17 23:30 - Labs Result Diagrams: 08/23/17 00:38 08/23/17 00:38 Labs: Laboratory Results - last 24 hr 08/23/17 08/23/17 08/23/17 00:38 00:38 00:38 WBC 16.6 H D RBC 4.82 Hgb 14.7 Hct 42.0 MCV 87.1 MCH 30.5 MCHC 35.0 RDW 12.8 Plt Count 291 MPV 9.1 Gran % 80.2 H Lymph % (Auto) 11.0 L [place] % (Auto) 8.1 H Eos % (Auto) 0.5 L Baso % (Auto) 0.2 Gran # 13.32 H Lymph # (Auto) 1.8 [place] # (Auto) 1.3 H Eos # (Auto) 0.1 Baso # (Auto) 0.03 PT 13.3 H INR 1.16 H APTT 32.2 pO2 VBG pH VBG pCO2 VBG HCO3 VBG Total CO2 VBG O2 Sat (Calc) VBG Base Excess VBG Potassium Sodium Chloride Glucose Lactate FiO2 Potassium Carbon Dioxide Anion Gap BUN Creatinine Est GFR ( Amer) Est GFR (Non-Af Amer) Random Glucose Calcium Total Bilirubin AST ALT Alkaline Phosphatase Total Protein Albumin Globulin Albumin/Globulin Ratio Venous Blood Potassium Urine Color Yellow Urine Appearance Sl cloudy Urine pH 6.5 Ur Specific [place] <= 1.005 Urine Protein 30 H Urine Glucose (UA) Negative Urine Ketones Negative Urine Blood Large H Urine Nitrate Positive H Urine Bilirubin Negative Urine Urobilinogen 0.2 Ur Leukocyte Esterase Large H Urine RBC 2 - 5 Urine WBC 5 - 10 Ur Epithelial Cells 0 - 2 Urine Bacteria Small 08/23/17 08/23/17 00:38 00:38 WBC RBC Hgb Hct MCV MCH MCHC RDW Plt Count MPV Gran % Lymph % (Auto) [place] % (Auto) Eos % (Auto) Baso % (Auto) Gran # Lymph # (Auto) [place] # (Auto) Eos # (Auto) Baso # (Auto) PT INR APTT pO2 32 VBG pH 7.33 VBG pCO2 52.0 VBG HCO3 27.4 VBG Total CO2 29.0 H VBG O2 Sat (Calc) 63.8 VBG Base Excess 0.6 VBG Potassium 4.1 Sodium 139.0 142 Chloride 103.0 101 Glucose 125 H Lactate 1.8 FiO2 21.0 Potassium 4.1 Carbon Dioxide 26 Anion Gap 19 BUN 20 Creatinine 1.2 Est GFR ( Amer) > 60 Est GFR (Non-Af Amer) > 60 Random Glucose 124 H Calcium 9.7 Total Bilirubin 0.9 AST 37 ALT 33 Alkaline Phosphatase 89 Total Protein 8.2 Albumin 4.7 Globulin 3.5 Albumin/Globulin Ratio 1.3 Venous Blood Potassium 4.1 Urine Color Urine Appearance Urine pH Ur Specific [place] Urine Protein Urine Glucose (UA) Urine Ketones Urine Blood Urine Nitrate Urine Bilirubin Urine Urobilinogen Ur Leukocyte Esterase Urine RBC Urine WBC Ur Epithelial Cells Urine Bacteria
--- NOTE | 2017-08-23 04:50 | CP.PCM.HP ---
<Delbert Valadez - Last Filed: 08/23/17 07:15> History of Present Illness - History of Present Illness History of Present Illness: Delbert Valadez D.O. PGY-1, Internal Medicine Resident, History and Physical Note for Dr Calixto. Pt is a 31 yo male with a PMH of rhabdomyosarcoma (remission), nephrolithiasis, and ureteral stent placement who presents to the ED complaining of fever. Pt recently underwent ureteral reconstruction due to complications secondary to an obstructing kidney stone or scar from previous radiation during his cancer treatments. Pt had surgery at [facility] on August 16 2017. Pt was discharged home with a Erickson catheter in place. Pt reports feeling fever and chills around 7pm 08/22/17. Pt denies purulent drainage, or throbbing around incision sites. Pt denies back pain, abdominal pain, n/v/d, chest pain, SOB or any other complaints. Pt reports feeling itchy and having a skin reaction when he began getting his does of Zosyn. PMH: rhabdomyosarcoma (remission), nephrolithiasis, and ureteral stent placement PSH: right ureteral reconstruction, ureteral stent placement 08/16/17, right hip replacement FH: Mother- breast CA, Kidney tumor. Father- HTN. Sisters 30 yo, 23 yo- no medical issues Social: lives in [place], works with the [employer], denies alcohol, tobacco 1 ppd for 16 years, uses Marijuana occasionally Allergies: zosyn, skin reaction Home meds: none PMD: none Urologist: Dr Mathis Present on Admission - Present on Admission Any Indicators Present on Admission: Yes Urinary Catheter: Yes (erickson) Review of Systems - Constitutional Constitutional: Chills, Fatigue, Fever - EENT Ears: absent: Decreased Hearing - Cardiovascular Cardiovascular: absent: Chest Pain, Chest Pain at Rest, Diaphoresis, Dyspnea, Pedal Edema - Respiratory Respiratory: absent: Cough - Gastrointestinal Gastrointestinal: Abdominal Pain. absent: Diarrhea - Genitourinary Genitourinary: absent: Hematuria Additional comments: erickson in place Past Patient History - Infectious Disease Hx of Infectious Diseases: None - Tetanus Immunizations Tetanus Immunization: Unknown - Past Social History Smoking Status: Heavy Smoker > 10 Cigarettes Daily - NEUROLOGICAL Hx Paralysis: No - RENAL Hx Kidney Stones: Yes Hx Renal (Kidney) Cancer: Yes - HEMATOLOGICAL/ONCOLOGICAL Hx Blood Transfusions: No - MUSCULOSKELETAL/RHEUMATOLOGICAL Hx Musculoskeletal Disorders: No - GENITOURINARY/GYNECOLOGICAL Other/Comment: kidney stone - PSYCHIATRIC Hx Emotional Abuse: No Hx Physical Abuse: No Hx Substance Use: No (DENIES) - SURGICAL HISTORY Hx Joint Replacement: Yes (right hip) - ANESTHESIA Hx Anesthesia Reactions: No Hx Malignant Hyperthermia: No Meds Allergies/Adverse Reactions: Allergies Allergy/AdvReac Type Severity Reaction Status Date / Time Penicillins AdvReac ITCHING Verified 08/23/17 07:41 piperacillin [From Zosyn] AdvReac VOMITING Verified 08/23/17 07:41 tazobactam [From Zosyn] AdvReac VOMITING Verified 08/23/17 07:41 Physical Exam - Constitutional Appears: No Acute Distress - Head Exam Head Exam: ATRAUMATIC, NORMOCEPHALIC - Eye Exam Eye Exam: EOMI, PERRL - Neck Exam Neck exam: Positive for: Normal Inspection - Respiratory Exam Respiratory Exam: Clear to Auscultation Bilateral, NORMAL BREATHING PATTERN - Cardiovascular Exam Cardiovascular Exam: REGULAR RHYTHM, RRR, +S1, +S2 - GI/Abdominal Exam GI & Abdominal Exam: Normal Bowel Sounds, Soft, Tenderness - Rectal Exam Rectal Exam: Deferred - Extremities Exam Extremities exam: Positive for: full ROM, normal inspection. Negative for: calf tenderness - Back Exam Back exam: NORMAL INSPECTION - Neurological Exam Neurological exam: Alert, CN II-XII Intact, Oriented x3 - Psychiatric Exam Psychiatric exam: Normal Affect, Normal Mood - Skin Skin Exam: Normal Color Results - Vital Signs Recent Vital Signs: Last Vital Signs Temp 100.9 F H 08/23/17 00:59 Pulse 100 H 08/22/17 23:30 Resp 18 08/22/17 23:30 BP 121/81 08/22/17 23:30 Pulse Ox 98 08/22/17 23:30 - Labs Result Diagrams: 08/23/17 00:38 08/23/17 00:38 Assessment & Plan - Assessment and Plan (Free Text) Assessment: Pt is a 31 yo male with a PMH of rhabdomyosarcoma (remission), nephrolithiasis, and ureteral stent placement who presents to the ED complaining of fever. Plan: Sepsis -SIRS criteria, 100.9F, Tachycardic, WBC 16.6, source complicated UTI -Erickson in place since 7/9/18 -UA: protein 30, blood large, nitrate positive, LE large -ID: consulted, Dr Atkins -procal ordered, awaiting results -start Merropenum IV IVPB q8 -start Vancomycin 1gm in NS IVBP Q12H -zosyn started, pt had skin reaction History of Rhabdomyosarcoma when pt was 1yo -pt is currently in remission, treated with radiation -pt does not remember who oncologist was, does not currently follow with an oncologist History of Nephrolithiasis -stent placed 08/16/17 Patient seen and examined and case was discussed at length with attending physician Dr Calixto. Delbert Valadez PGY-1. <Marily SMITH,Omid - Last Filed: 08/23/17 09:38> Results - Vital Signs Recent Vital Signs: Last Vital Signs Temp 98.3 F 08/23/17 06:00 Pulse 101 H 08/23/17 06:00 Resp 20 08/23/17 06:00 BP 131/90 08/23/17 06:00 Pulse Ox 100 08/23/17 06:00 - Labs Result Diagrams: 08/23/17 07:30 08/23/17 07:30 Labs: Laboratory Results - last 24 hr 08/23/17 08/23/17 08/23/17 07:30 07:30 07:30 WBC 14.1 H RBC 4.45 Hgb 13.3 L Hct 38.2 L MCV 85.8 MCH 29.9 MCHC 34.8 RDW 12.7 Plt Count 251 MPV 8.9 Gran % 82.0 H Lymph % (Auto) 6.8 L [place] % (Auto) 10.4 H Eos % (Auto) 0.7 L Baso % (Auto) 0.1 Gran # 11.54 H Lymph # (Auto) 1.0 L [place] # (Auto) 1.5 H Eos # (Auto) 0.1 Baso # (Auto) 0.02 pO2 58 H VBG pH 7.43 VBG pCO2 39.0 L VBG HCO3 25.9 VBG Total CO2 27.1 VBG O2 Sat (Calc) 93.6 H VBG Base Excess 1.5 VBG Potassium 4.3 Sodium 143 140.0 Chloride 107 108.0 H Glucose 117 H Lactate 1.5 FiO2 21.0 Potassium 4.0 Carbon Dioxide 23 Anion Gap 18 BUN 15 Creatinine 0.9 Est GFR ( Amer) > 60 Est GFR (Non-Af Amer) > 60 Random Glucose 114 H Calcium 9.3 Phosphorus 2.2 L Magnesium 2.0 Total Bilirubin 1.2 AST 31 ALT 35 Alkaline Phosphatase 77 Total Creatine Kinase 52 Total Protein 7.4 Albumin 4.2 Globulin 3.2 Albumin/Globulin Ratio 1.3 Venous Blood Potassium 4.3 Attending/Attestation - Attestation I have personally seen and examined this patient.: Yes I have fully participated in the care of the patient.: Yes I have reviewed all pertinent clinical information: Yes Notes (Text): -I agree with the above H&P completed by the resident physician with the following additions and/or changes: -The patient is a 31 year old man with a history of rhabdomyosarcoma (remission) , nephrolithiasis, and ureteral stent placement who recently underwent ureteral reconstructive surgery at [facility], on August 16 2017. He was discharged home afterwards with a Erickson catheter and developed sudden fevers, chills and fatigue 1 day ago. He will be admitted to the med/surg almaraz for treatment of sepsis due to UTI. Empiric IV Meropenem and Vanco will be started and ID has been consulted. Procalcitonin has been sent.
[2017-08-23] MEDS: Meropenem IV 1 gm in NS 50 ML IVPB SCH ×3 (06:36→21:46)
[2017-08-23 07:55] LABS: VENOUS BLOOD GAS BASE EXCESS 1.5 mmol/L (0.0-2.0); VENOUS BLOOD GAS PO2 58 mm/Hg (30-55); VENOUS BLOOD PH 7.43 (7.32-7.43)
[2017-08-23 08:00] LABS: BASO # 0.02 K/mm3 (0.0-2.0); BASO % 0.1 % (0.0-3.0); EOS # 0.1 (0.0-0.7); EOS % 0.7 % (1.5-5.0); GRAN # 11.54 (1.4-6.5); HEMOGLOBIN 13.3 g/dL (14.0-18.0); LYMPH % 6.8 % (22.0-35.0); MEAN CELL VOLUME 85.8 fl (80.0-105.0); MEAN CORPUSCULAR HEMOGLOBIN 29.9 pg (25.0-35.0); MEAN CORPUSCULAR HGB CONC 34.8 g/dl (31.0-37.0); MEAN PLATELET VOLUME 8.9 fl (7.0-11.0); MONO # 1.5 (0.1-0.6); MONO % 10.4 % (1.0-6.0); RBC 4.45 10^6/uL (3.5-6.1); RED CELL DISTRIBUTION WIDTH 12.7 % (11.5-14.5); WHITE BLOOD COUNT 14.1 10^3/ul (4.5-11.0)
[2017-08-23] MEDS ORDERED: Vancomycin 750mg 750 MG/250 ML BAG IVPB SCH (08:00)
[2017-08-23 08:32] LABS: ALB/GLOB RATIO 1.3 (1.1-1.8); ALBUMIN 4.2 g/dL (3.0-4.8); ALT/SGPT 35 U/L (7-56); AST/SGOT 31 U/L (17-59); BLOOD UREA NITROGEN 15 mg/dL (7-21); CALCIUM 9.3 mg/dL (8.4-10.5); GFR AFRICAN-AMERICAN > 60; GFR NON-AFRICAN AMERICAN > 60
--- NOTE | 2017-08-23 08:55 | RAD ---
Date of service: 08/23/2017 HISTORY: Sepsis Patient COMPARISON: 05/24/2017 FINDINGS: LUNGS: No active pulmonary disease. PLEURA: No significant pleural effusion identified, no pneumothorax apparent. CARDIOVASCULAR: Normal. OSSEOUS STRUCTURES: No significant abnormalities. VISUALIZED UPPER ABDOMEN: Normal. OTHER FINDINGS: None. IMPRESSION: No active disease.
--- NOTE | 2017-08-23 10:11 | CT ---
Date of service: 08/23/2017 PROCEDURE: CT Abdomen and Pelvis without intravenous contrast HISTORY: hx.right stent /reconstructive surgery? COMPARISON: CT 03/05/2017 TECHNIQUE: Without contrast.. Contrast dose: Radiation dose: Total exam DLP = 460 mGy-cm. This CT exam was performed using one or more of the following dose reduction techniques: Automated exposure control, adjustment of the mA and/or kV according to patient size, and/or use of iterative reconstruction technique. FINDINGS: LOWER THORAX: Multiple small pockets of free air are seen beneath the right hemidiaphragm. The etiology of this free air is unclear. Clinical correlation is suggested regarding any recent surgery LIVER: Unremarkable. No gross lesion or ductal dilatation. GALLBLADDER AND BILE DUCTS: Unremarkable. PANCREAS: Unremarkable. No gross lesion or ductal dilatation. SPLEEN: Unremarkable. ADRENALS: Unremarkable. No mass. KIDNEYS AND URETERS: Right-sided ureteral stent VASCULATURE: Unremarkable. No aortic aneurysm. BOWEL: Unremarkable. No obstruction. No gross mural thickening. APPENDIX: Unremarkable. Normal appendix. PERITONEUM: Unremarkable. No free fluid. No free air. LYMPH NODES: Unremarkable. No enlarged lymph nodes. BLADDER: Unremarkable. REPRODUCTIVE: Unremarkable. BONES: No acute fracture. OTHER FINDINGS: The report concurs with the preliminary [facility] report. The V rad report was communicated by phone to Dr. Uribe at 2:05 a.m. 08/23/2017 None. IMPRESSION: Multiple small pockets of free air are seen beneath the right hemidiaphragm. The etiology of this free air is unclear. Clinical correlation is suggested regarding any recent surgery Right ureteral stent
--- NOTE | 2017-08-23 11:18 | CARD ---
APPROVED REPORT Date of service: 08/23/2017 EKG Measurement Heart [id number] <Conclusion> Sinus rhythm with premature atrial complexes Otherwise normal ECG
--- NOTE | 2017-08-23 14:20 | CP.PCM.PCO ---
Physician Communication Note - Physician Communication Note Physician Communication Note: Spoke with Dr. Mathis (Uro), ok to d/c erickson and f /u outpt
--- NOTE | 2017-08-23 15:38 | CP.PCM.CON ---
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 He was discharged with a Mulligan catheter and has had it since then until now. He started having fevers and chills yesterday associated with drainage from the surgical sites. He denies headache or dizziness, no chest pain, no SOB, no nausea or vomiting, no chest pain, no sore throat, no cough or rhinorrhea, no diarrhea. Infectious Diseases consult is requested to further evaluate and manage. Review of Systems - Review of Systems All systems: reviewed and no additional remarkable complaints except (as per HPI ) Past Patient History - Infectious Disease Hx of Infectious Diseases: None - Tetanus Immunizations Tetanus Immunization: Unknown - Past Social History Smoking Status: Heavy Smoker > 10 Cigarettes Daily - CARDIAC Hx Cardiac Disorders: No - PULMONARY Hx Respiratory Disorders: No - NEUROLOGICAL Hx Paralysis: No - HEENT Hx HEENT Problems: No - RENAL Hx Kidney Stones: Yes Hx Renal (Kidney) Cancer: Yes - ENDOCRINE/METABOLIC Hx Endocrine Disorders: No - HEMATOLOGICAL/ONCOLOGICAL Hx Blood Transfusions: No - INTEGUMENTARY Hx Dermatological Problems: No - MUSCULOSKELETAL/RHEUMATOLOGICAL Hx Musculoskeletal Disorders: No - GASTROINTESTINAL Hx Gastrointestinal Disorders: No - GENITOURINARY/GYNECOLOGICAL Other/Comment: kidney stone - PSYCHIATRIC Hx Emotional Abuse: No Hx Physical Abuse: No Hx Substance Use: No (DENIES) - SURGICAL HISTORY Hx Joint Replacement: Yes (right hip) - ANESTHESIA Hx Anesthesia Reactions: No Hx Malignant Hyperthermia: No Meds Allergies/Adverse Reactions: Allergies Allergy/AdvReac Type Severity Reaction Status Date / Time Penicillins AdvReac ITCHING Verified 08/23/17 07:41 piperacillin [From Zosyn] AdvReac VOMITING Verified 08/23/17 07:41 tazobactam [From Zosyn] AdvReac VOMITING Verified 08/23/17 07:41 - Medications Medications: Current Medications Acetaminophen (Tylenol 325mg Tab) 650 mg PO Q4H PRN PRN Reason: Fever >100.4 F Sodium Chloride (Sodium Chloride 0.9%) 1,000 mls @ 150 mls/hr IV .Q6H40M GRAHAM Last Admin: 08/23/17 06:37 Dose: 150 mls/hr Meropenem (Merrem Iv 1 Gm Premix) 50 mls @ 100 mls/hr IVPB Q8 GRAHAM PRN Reason: Protocol Stop: 08/30/17 06:01 Last Admin: 08/23/17 06:36 Dose: 100 mls/hr Vancomycin HCl (Vancomycin 750 Mg In Ns) 750 mg in 250 mls @ 167 mls/hr IVPB Q12H GRAHAM PRN Reason: Protocol Ondansetron HCl (Zofran Inj) 4 mg IVP Q4H PRN PRN Reason: Nausea/Vomiting Pantoprazole Sodium (Protonix Inj) 40 mg IVP DAILY [facility] Physical Exam - Constitutional Appears: Chronically Ill - Head Exam Head Exam: NORMAL INSPECTION - ENT Exam ENT Exam: Mucous Membranes Moist - Neck Exam Neck exam: Negative for: Lymphadenopathy, Meningismus - Respiratory Exam Respiratory Exam: Decreased Breath Sounds - Cardiovascular Exam Cardiovascular Exam: +S1, +S2 - GI/Abdominal Exam GI & Abdominal Exam: Soft. absent: Tenderness Results - Vital Signs Recent Vital Signs: Last Vital Signs Temp 98.3 F 08/23/17 06:00 Pulse 101 H 08/23/17 06:00 Resp 20 08/23/17 06:00 BP 131/90 08/23/17 06:00 Pulse Ox 100 08/23/17 06:00 - Labs Result Diagrams: 08/23/17 07:30 08/23/17 07:30 Labs: Laboratory Results - last 24 hr 08/23/17 08/23/17 08/23/17 07:30 07:30 07:30 WBC 14.1 H RBC 4.45 Hgb 13.3 L Hct 38.2 L MCV 85.8 MCH 29.9 MCHC 34.8 RDW 12.7 Plt Count 251 MPV 8.9 Gran % 82.0 H Lymph % (Auto) 6.8 L [place] % (Auto) 10.4 H Eos % (Auto) 0.7 L Baso % (Auto) 0.1 Gran # 11.54 H Lymph # (Auto) 1.0 L [place] # (Auto) 1.5 H Eos # (Auto) 0.1 Baso # (Auto) 0.02 pO2 58 H VBG pH 7.43 VBG pCO2 39.0 L VBG HCO3 25.9 VBG Total CO2 27.1 VBG O2 Sat (Calc) 93.6 H VBG Base Excess 1.5 VBG Potassium 4.3 Sodium 143 140.0 Chloride 107 108.0 H Glucose 117 H Lactate 1.5 FiO2 21.0 Potassium 4.0 Carbon Dioxide 23 Anion Gap 18 BUN 15 Creatinine 0.9 Est GFR ( Amer) > 60 Est GFR (Non-Af Amer) > 60 Random Glucose 114 H Calcium 9.3 Phosphorus 2.2 L Magnesium 2.0 Total Bilirubin 1.2 AST 31 ALT 35 Alkaline Phosphatase 77 Total Creatine Kinase 52 Total Protein 7.4 Albumin 4.2 Globulin 3.2 Albumin/Globulin Ratio 1.3 Venous Blood Potassium 4.3 Assessment & Plan - Assessment and Plan (Free Text) Plan: Assessment consider sepsis due to complicated UTI associated with Mulligan catheter use rhabdomyosarcoma history of nephrolithiasis with obstruction S/P ureteral stent placement Plan Started Vancomycin and Merrem pending blood and urine cx; Mulligan catheter should be removed follow up Urology evaluation and recommendations will monitor clinically
[2017-08-23] MEDS: Vancomycin 750mg 750 MG/250 ML BAG IVPB SCH (18:12)
[2017-08-24] MEDS: Meropenem IV 1 gm in NS 50 ML IVPB SCH ×3 (05:53→20:59)
[2017-08-24] MEDS: Sodium Chloride 0.9% 1,000 ML IV SCH (05:55)
[2017-08-24] MEDS: Vancomycin 750mg 750 MG/250 ML BAG IVPB SCH ×2 (05:55→17:34)
[2017-08-24] MEDS: Pantoprazole 40 mg EC Tab PO SCH ×2 (05:56→09:39)
[2017-08-24 07:11] LABS: BASO # 0.03 K/mm3 (0.0-2.0); BASO % 0.3 % (0.0-3.0); EOS # 0.2 (0.0-0.7); EOS % 1.7 % (1.5-5.0); GRAN # 6.17 (1.4-6.5); GRAN % 62.3 % (50.0-68.0); HEMOGLOBIN 11.9 g/dL (14.0-18.0); LYMPH # 2.1 (1.2-3.4); LYMPH % 21.6 % (22.0-35.0); MEAN CELL VOLUME 87.3 fl (80.0-105.0); MEAN CORPUSCULAR HEMOGLOBIN 29.1 pg (25.0-35.0); MEAN CORPUSCULAR HGB CONC 33.3 g/dl (31.0-37.0); MEAN PLATELET VOLUME 8.5 fl (7.0-11.0); MONO # 1.4 (0.1-0.6); MONO % 14.1 % (1.0-6.0); RBC 4.09 10^6/uL (3.5-6.1); RED CELL DISTRIBUTION WIDTH 12.9 % (11.5-14.5); WHITE BLOOD COUNT 9.9 10^3/ul (4.5-11.0)
[2017-08-24 07:30] LABS: ALB/GLOB RATIO 1.2 (1.1-1.8); ALBUMIN 3.7 g/dL (3.0-4.8); ALT/SGPT 32 U/L (7-56); AST/SGOT 25 U/L (17-59); BLOOD UREA NITROGEN 10 mg/dL (7-21); GFR AFRICAN-AMERICAN > 60; GFR NON-AFRICAN AMERICAN > 60
[2017-08-24] MEDS: Enoxaparin 40 mg Syringe SC SCH (09:38)
--- NOTE | 2017-08-24 13:30 | CP.PCM.PN ---
<Adin Dc - Last Filed: 08/24/17 13:54> Subjective - Date & Time of Evaluation Date of Evaluation: 08/24/17 Time of Evaluation: 11:15 - Subjective Subjective: Adin Dc DO PGY-1, [facility] Medicine Progress Note Pt seen and examined at bedside. Denies any acute complaints this am. Tolerating PO diet well and slept well overnight. S/p erickson removal yesterday as directed by pt's primary urologist Dr. Mathis. Denies dysuria, burning with urination, hematuria, flank pain, fevers or chills, or abd/suprapubic pain. Objective - Vital Signs/Intake and Output Vital Signs (last 24 hours): Temp Pulse Resp BP Pulse Ox 98.9 F 63 20 106/69 99 08/24/17 06:00 08/24/17 06:00 08/24/17 06:00 08/24/17 06:00 08/24/17 06:00 Intake and Output: 08/24/17 08/24/17 06:59 18:59 Intake Total 620 Balance 620 - Medications Medications: Current Medications Acetaminophen (Tylenol 325mg Tab) 650 mg PO Q4H PRN PRN Reason: Fever >100.4 F Last Admin: 08/23/17 15:41 Dose: 650 mg Enoxaparin Sodium (Lovenox) 40 mg SC DAILY GRAHAM PRN Reason: Protocol Last Admin: 08/24/17 09:38 Dose: 40 mg Meropenem (Merrem Iv 1 Gm Premix) 50 mls @ 100 mls/hr IVPB Q8 GRAHAM PRN Reason: Protocol Stop: 08/30/17 06:01 Last Admin: 08/24/17 05:53 Dose: 100 mls/hr Vancomycin HCl (Vancomycin 750 Mg In Ns) 750 mg in 250 mls @ 167 mls/hr IVPB Q12H GRAHAM PRN Reason: Protocol Last Admin: 08/24/17 05:55 Dose: 167 mls/hr Ondansetron HCl (Zofran Inj) 4 mg IVP Q4H PRN PRN Reason: Nausea/Vomiting Pantoprazole Sodium (Protonix Ec Tab) 40 mg PO ACB GRAHAM Last Admin: 08/24/17 09:39 Dose: 40 mg - Labs Labs: 08/24/17 06:45 08/24/17 06:45 PT 13.3 SECONDS (9.4-12.5) H 08/23/17 00:38 INR 1.16 (0.93-1.08) H 08/23/17 00:38 APTT 32.2 Seconds (25.1-36.5) 08/23/17 00:38 - Constitutional Appears: Well, Non-toxic, No Acute Distress - Head Exam Head Exam: ATRAUMATIC, NORMAL INSPECTION - Eye Exam Eye Exam: EOMI, Normal appearance, PERRL - ENT Exam ENT Exam: Mucous Membranes Moist, Normal Oropharynx - Neck Exam Neck Exam: Full ROM, Normal Inspection - Respiratory Exam Respiratory Exam: Clear to Ausculation Bilateral, NORMAL BREATHING PATTERN - Cardiovascular Exam Cardiovascular Exam: REGULAR RHYTHM, +S1, +S2 - GI/Abdominal Exam GI & Abdominal Exam: Soft, Normal Bowel Sounds - Extremities Exam Extremities Exam: Full ROM, Normal Capillary Refill, Normal Inspection - Back Exam Back Exam: NORMAL INSPECTION Additional comments: Neg CVA tenderness b/l - Neurological Exam Neurological Exam: Alert, Awake, CN II-XII Intact, Normal Gait, Oriented x3 - Psychiatric Exam Psychiatric exam: Normal Affect, Normal Mood - Skin Skin Exam: Dry, Intact, Normal Color, Warm Assessment and Plan - Assessment and Plan (Free Text) Assessment: 31 yo male with PMH of rhabdomyosarcoma in remission, nephrolithiasis, and ureteral stent placement on 08/16/17, who presented to the ED with fever. On work- up pt met SIRS criteria due to tachycardia, leukocytosis, and fever, was found to have urinary tract infection, awaiting final results of culture. Pt was started on empiric antibiotic therapy on admission. Plan: Sepsis Likely 2/2 to urinary tract infection Pt afebrile since yesterday at 1500 (101.8F) Will continue to monitor pt until he is at least 24 hrs without fever Leukocytosis resolved this am Erickson d/c'd yesterday as per pt's primary urologist Dr. Mathis, pt not c/o blood at site of removal, no dysuria UA: protein 30, blood large, nitrate positive, LE large Procalcitonin elevated, lactate wnl ID consulted, recs appreciated C/w Meropenem IVPB q8h (day 2) C/w Vancomycin 1 g IVPB Q12H (day 2) Pt had initial skin reaction after given initial zosyn dose, medication d/c'd Tylenol 650 q 4 h PRN fever F/u final results of urine cx, growing gram neg rods Hx Rhabdomyosarcoma Pt currently in remission, treated with radiation at age 1 Pt does not follow with an oncologist currently Hx Nephrolithiasis S/p R ureteral stent placed 08/16/17 Erickson catheter removed yesterday, pt states pain is greatly improved Pt will f/u with primary urologist Dr. Mathis after d/c to review stone pathology results GI/DVT ppx: Protonix 40 mg PO daily, Lovenox 40 mg subQ Pt seen, examined with, and plan d/w Dr. Riley, attending. Adin Dc DO PGY-1, [employer] [facility] Pager #[phone] <Anmol Riley - Last Filed: 08/24/17 17:36> Objective - Vital Signs/Intake and Output Vital Signs (last 24 hours): Temp Pulse Resp BP Pulse Ox 98.9 F 63 20 106/69 99 08/24/17 06:00 08/24/17 06:00 08/24/17 06:00 08/24/17 06:00 08/24/17 06:00 Intake and Output: 08/24/17 08/24/17 06:59 18:59 Intake Total 620 Balance 620 - Medications Medications: Current Medications Acetaminophen (Tylenol 325mg Tab) 650 mg PO Q4H PRN PRN Reason: Fever >100.4 F Last Admin: 08/23/17 15:41 Dose: 650 mg Enoxaparin Sodium (Lovenox) 40 mg SC DAILY GRAHAM PRN Reason: Protocol Last Admin: 08/24/17 09:38 Dose: 40 mg Meropenem (Merrem Iv 1 Gm Premix) 50 mls @ 100 mls/hr IVPB Q8 GRAHAM PRN Reason: Protocol Stop: 08/30/17 06:01 Last Admin: 08/24/17 14:15 Dose: 100 mls/hr Vancomycin HCl (Vancomycin 750 Mg In Ns) 750 mg in 250 mls @ 167 mls/hr IVPB Q12H GRAHAM PRN Reason: Protocol Last Admin: 08/24/17 05:55 Dose: 167 mls/hr Ondansetron HCl (Zofran Inj) 4 mg IVP Q4H PRN PRN Reason: Nausea/Vomiting Pantoprazole Sodium (Protonix Ec Tab) 40 mg PO ACB GRAHAM Last Admin: 08/24/17 09:39 Dose: 40 mg - Labs Labs: 08/24/17 06:45 08/24/17 06:45 PT 13.3 SECONDS (9.4-12.5) H 08/23/17 00:38 INR 1.16 (0.93-1.08) H 08/23/17 00:38 APTT 32.2 Seconds (25.1-36.5) 08/23/17 00:38 Attending/Attestation - Attestation I have personally seen and examined this patient.: Yes I have fully participated in the care of the patient.: Yes I have reviewed all pertinent clinical information, including history, physical exam and plan: Yes Notes (Text): 08/24/17 17:33 31 year old male with past medical history of rhabdomyosarcoma in remission, nephrolithiasis and ureteral stent placement (08/16/17) who presented with fever secondary to UTI. He is on iv antibiotics. Leukocytosis has improved. UCx is growing gram negative rods. Tmax was 101.8 yesterday afternoon. Continue with iv antibiotics. ID is following. Erickson was removed yesterday. Family is at bedside and questions were answered. Anmol Riley MD Hospitalist.
--- NOTE | 2017-08-25 02:16 | PN ---
DATE: 08/24/2017 SUBJECTIVE: The patient was seen early this morning in room 575, bed 2, and no fevers, no chills. PHYSICAL EXAMINATION: VITAL SIGNS: Temperature is 98, blood pressure is 106/60, respiratory rate 20, heart rate of 63. HEENT: Unremarkable. NECK: Supple. CARDIOPULMONARY: Normal S1 and S2. LUNGS: Decreased breath sounds. ABDOMEN: Soft, nontender. LABORATORY DATA: Reveals a white count of 9.9, hemoglobin of 11, platelets of 216. BUN of 10, creatinine of 0.9, procalcitonin is 0.61. Urinalysis is noted. Serology, HIV is negative. Microbiology reveals blood cultures show no growth, urine culture has Gram negative tunde. Review of orders reveal the patient to be on meropenem and vancomycin. ASSESSMENT AND PLAN: A 31-year-old male seen earlier today in 5, bed 2, with history of rhabdosarcoma, history of nephrolithiasis with obstruction, status post ureteral stent placement and right side ureteral reconstruction on 08/16/2017 at [facility], discharged with a Mulligan catheter, admitted with sepsis with Gram negative tunde secondary to urine, Mulligan catheter is the source, on vancomycin and meropenem, with blood cultures no growth with Gram negative tunde in the urine. We will discontinue the vancomycin, and continue to keep the patient on meropenem pending identification and sensitivity of Gram negative tunde. Jace Atkins MD
[2017-08-25] MEDS: Meropenem IV 1 gm in NS 50 ML IVPB SCH ×2 (05:17→14:50)
[2017-08-25 07:57] LABS: BASO # 0.03 K/mm3 (0.0-2.0); BASO % 0.4 % (0.0-3.0); EOS # 0.2 (0.0-0.7); EOS % 3.1 % (1.5-5.0); GRAN # 3.72 (1.4-6.5); GRAN % 54.5 % (50.0-68.0); HEMOGLOBIN 12.4 g/dL (14.0-18.0); LYMPH # 1.8 (1.2-3.4); MEAN CELL VOLUME 87.9 fl (80.0-105.0); MEAN CORPUSCULAR HEMOGLOBIN 29.5 pg (25.0-35.0); MEAN CORPUSCULAR HGB CONC 33.6 g/dl (31.0-37.0); MEAN PLATELET VOLUME 8.7 fl (7.0-11.0); RBC 4.2 10^6/uL (3.5-6.1); RED CELL DISTRIBUTION WIDTH 12.9 % (11.5-14.5); WHITE BLOOD COUNT 6.8 10^3/ul (4.5-11.0)
[2017-08-25 08:06] LABS: ALB/GLOB RATIO 1.2 (1.1-1.8); ALT/SGPT 40 U/L (7-56); AST/SGOT 31 U/L (17-59); BLOOD UREA NITROGEN 11 mg/dL (7-21); CALCIUM 9.7 mg/dL (8.4-10.5); GFR AFRICAN-AMERICAN > 60; GFR NON-AFRICAN AMERICAN > 60
[2017-08-25 09:04] VITALS: RESP 20
[2017-08-25] MEDS: Enoxaparin 40 mg Syringe SC SCH (09:59)
--- NOTE | 2017-08-25 16:12 | CP.PCM.DIS ---
<DaoAdin - Last Filed: 08/25/17 16:03> Provider - Provider Date of Admission: 08/23/17 03:07 Attending physician: Anmol Riley MD Primary care physician: NO FAMILY PROVIDER Consults: JAVED - Dr. Leonardo Time Spent in preparation of Discharge (in minutes): 45 Diagnosis - Discharge Diagnosis (1) Urinary tract infection associated with catheterization of urinary tract Status: Resolved Hospital Course - Lab Results Lab Results: Most Recent Lab Values WBC 6.8 10^3/ul (4.5-11.0) D 08/25/17 07:30 RBC 4.20 10^6/uL (3.5-6.1) 08/25/17 07:30 Hgb 12.4 g/dL (14.0-18.0) L 08/25/17 07:30 Hct 36.9 % (42.0-52.0) L 08/25/17 07:30 MCV 87.9 fl (80.0-105.0) 08/25/17 07:30 MCH 29.5 pg (25.0-35.0) 08/25/17 07:30 MCHC 33.6 g/dl (31.0-37.0) 08/25/17 07:30 RDW 12.9 % (11.5-14.5) 08/25/17 07:30 Plt Count 251 10^3/uL (120.0-450.0) 08/25/17 07:30 MPV 8.7 fl (7.0-11.0) 08/25/17 07:30 Gran % 54.5 % (50.0-68.0) 08/25/17 07:30 Lymph % (Auto) 27.0 % (22.0-35.0) 08/25/17 07:30 Tyrrell % (Auto) 15.0 % (1.0-6.0) H 08/25/17 07:30 Eos % (Auto) 3.1 % (1.5-5.0) 08/25/17 07:30 Baso % (Auto) 0.4 % (0.0-3.0) 08/25/17 07:30 Gran # 3.72 (1.4-6.5) 08/25/17 07:30 Lymph # (Auto) 1.8 (1.2-3.4) 08/25/17 07:30 Tyrrell # (Auto) 1.0 (0.1-0.6) H 08/25/17 07:30 Eos # (Auto) 0.2 (0.0-0.7) 08/25/17 07:30 Baso # (Auto) 0.03 K/mm3 (0.0-2.0) 08/25/17 07:30 PT 13.3 SECONDS (9.4-12.5) H 08/23/17 00:38 INR 1.16 (0.93-1.08) H 08/23/17 00:38 APTT 32.2 Seconds (25.1-36.5) 08/23/17 00:38 pO2 58 mm/Hg (30-55) H 08/23/17 07:30 VBG pH 7.43 (7.32-7.43) 08/23/17 07:30 VBG pCO2 39.0 (40-60) L 08/23/17 07:30 VBG HCO3 25.9 mmol/l (21-28) 08/23/17 07:30 VBG Total CO2 27.1 mmol.L (22-28) 08/23/17 07:30 VBG O2 Sat (Calc) 93.6 % (40-65) H 08/23/17 07:30 VBG Base Excess 1.5 mmol/L (0.0-2.0) 08/23/17 07:30 VBG Potassium 4.3 mmol/L (3.6-5.2) 08/23/17 07:30 Sodium 140.0 mmol/L (132-148) 08/23/17 07:30 Chloride 108.0 mmol/L (98-107) H 08/23/17 07:30 Glucose 117 mg/dl (75-110) H 08/23/17 07:30 Lactate 1.5 mmol/L (0.7-2.1) 08/23/17 07:30 FiO2 21.0 % 08/23/17 07:30 Sodium 146 mmol/L (132-148) 08/25/17 07:00 Potassium 4.3 mmol/L (3.6-5.0) 08/25/17 07:00 Chloride 106 mmol/L (98-107) 08/25/17 07:00 Carbon Dioxide 28 mmol/L (21-33) 08/25/17 07:00 Anion Gap 16 (10-20) 08/25/17 07:00 BUN 11 mg/dL (7-21) 08/25/17 07:00 Creatinine 0.9 mg/dl (0.8-1.5) 08/25/17 07:00 Est GFR ( Amer) > 60 08/25/17 07:00 Est GFR (Non-Af Amer) > 60 08/25/17 07:00 Random Glucose 101 mg/dL (70-110) 08/25/17 07:00 Calcium 9.7 mg/dL (8.4-10.5) 08/25/17 07:00 Phosphorus 3.2 mg/dL (2.5-4.5) 08/25/17 07:00 Magnesium 2.4 mg/dL (1.7-2.2) H 08/25/17 07:00 Total Bilirubin 0.4 mg/dL (0.2-1.3) 08/25/17 07:00 AST 31 U/L (17-59) 08/25/17 07:00 ALT 40 U/L (7-56) 08/25/17 07:00 Alkaline Phosphatase 72 U/L (38-126) 08/25/17 07:00 Total Creatine Kinase 52 U/L (35-230) 08/23/17 07:30 Total Protein 7.2 g/dL (5.8-8.3) 08/25/17 07:00 Albumin 4.0 g/dL (3.0-4.8) 08/25/17 07:00 Globulin 3.3 gm/dL 08/25/17 07:00 Albumin/Globulin Ratio 1.2 (1.1-1.8) 08/25/17 07:00 Procalcitonin 0.61 NG/ML (0.19-0.49) H 08/23/17 00:38 Venous Blood Potassium 4.3 mmol/L (3.6-5.2) 08/23/17 07:30 Urine Color Yellow (YELLOW) 08/23/17 00:38 Urine Appearance Sl cloudy (CLEAR) 08/23/17 00:38 Urine pH 6.5 (4.7-8.0) 08/23/17 00:38 Ur Specific Garrett <= 1.005 (1.005-1.035) 08/23/17 00:38 Urine Protein 30 mg/dL (<30 mg/dL) H 08/23/17 00:38 Urine Glucose (UA) Negative mg/dL (NEGATIVE) 08/23/17 00:38 Urine Ketones Negative mg/dL (NEGATIVE) 08/23/17 00:38 Urine Blood Large (NEGATIVE) H 08/23/17 00:38 Urine Nitrate Positive (NEGATIVE) H 08/23/17 00:38 Urine Bilirubin Negative (NEGATIVE) 08/23/17 00:38 Urine Urobilinogen 0.2 E.U./dL (<1 E.U./dL) 08/23/17 00:38 Ur Leukocyte Esterase Large Monica/uL (NEGATIVE) H 08/23/17 00:38 Urine RBC 2 - 5 /hpf (0-2) 08/23/17 00:38 Urine WBC 5 - 10 /hpf (0-6) 08/23/17 00:38 Ur Epithelial Cells 0 - 2 /hpf (0-5) 08/23/17 00:38 Urine Bacteria Small (NEG) 08/23/17 00:38 HIV 1&2 Ag/Ab, 4th Gen Nonreactive (Nonreactive) 08/23/17 07:30 - Hospital Course Hospital Course: Adin Dc DO PGY-1, Baby [employer] Consultant Medicine Discharge Summary 31 y o male PMhx rhabdomyosarcoma (R hip, in remission), nephrolithiasis, and s/ p R ureteral reconstruction on 08/16/17, presented to the ED on 08/22/17 for evaluation of fevers/chills, and was admitted for sepsis work-up. While in the ED, pt had a fever of 101.8F and initial labs revealed a WBC of 16.6 (SIRS 2/4) . CXR showed no acute findings. EKG demonstrated sinus rhythm with premature atrial complexes. CT abd/pelvis showed multiple pockets of free air beneath the R hemidiaphragm likely secondary recent ureteral surgery. No other acute findings. Pt was placed on empiric vancomycin and meropenem. Also was given tylenol, Protonix, Zofran, and lovenox for DVT prophylaxis. While admitted pt reported pain associated with his erickson catheter. After discussion with primary urologist Dr. Mathis, catheter was removed without complication. Pt denied dysuria, hematuria, or any other symptoms after removal of catheter. Initial urine cultures showed greater than 100,000 gram negative rods. ID elected to discontinue vancomycin and continue with meropenem IV. Final urine culture revealed Klebsiella pneumoniae with sensitivity to Meropenem and Ciprofloxacin. On day 3 of admission, pt was afebrile for 48 hrs. Blood cxs were negative 2/2 after 48 hrs. Discussed pt with Infectious Disease Dr. Leonardo who recommended pt to be on Ciprofloxacin PO 500 mg bid for 10 days on discharge. Pt was discharged to home in stable condition on 08/25/17 and instructed to follow-up with primary urologist Dr. Mathis to review kidney stone pathology, and follow- up at [facility] within 1 week after discharge. All questions and concerns were addressed with pt, and pt was agreeable with plan. Discharge Exam - Head Exam Head Exam: ATRAUMATIC, NORMAL INSPECTION - Eye Exam Eye Exam: EOMI, Normal appearance, PERRL - ENT Exam ENT Exam: Mucous Membranes Moist, Normal Oropharynx - Respiratory Exam Respiratory Exam: Clear to PA & Lateral, NORMAL BREATHING PATTERN, UNREMARKABLE - Cardiovascular Exam Cardiovascular Exam: REGULAR RHYTHM, +S1, +S2 - GI/Abdominal Exam GI & Abdominal Exam: Normal Bowel Sounds, Soft, Unremarkable - Extremities Exam Extremities exam: full ROM, normal capillary refill, normal inspection, pedal pulses present - Back Exam Back exam: FULL ROM, NORMAL INSPECTION - Neurological Exam Neurological exam: Alert, CN II-XII Intact, Normal Gait, Oriented x3, Reflexes Normal - Psychiatric Exam Psychiatric exam: Normal Affect, Normal Mood - Skin Skin Exam: Dry, Intact, Normal Color, Warm Discharge Plan - Discharge Medications Prescriptions: Ciprofloxacin [Cipro] 500 mg PO BID #20 tab - Follow Up Plan Condition: STABLE Disposition: HOME/ ROUTINE Instructions: Acute Abdominal Pain (DC), Acute Abdominal Pain (GEN), Leukocytosis (DC), Leukocytosis (GEN) Additional Instructions: Please follow-up with your PCP within 1 week of discharge, you will receive a call from [facility] about your scheduled appt. Please follow-up with your urologist (Dr. Mathis) by the end of this week after discharge from the hospital. Take antibiotics as prescribed. Should symptoms recur or worsen, please call your PCP or report to your nearest emergency department. Referrals: FAMILY PROVIDER,NO [Primary Care Provider] - <Anmol Riley - Last Filed: 08/25/17 16:48> Provider - Provider Date of Admission: 08/23/17 03:07 Attending physician: Anmol Riley MD Primary care physician: RIKY FAMILY PROVIDER Hospital Course - Lab Results Lab Results: Most Recent Lab Values WBC 6.8 10^3/ul (4.5-11.0) D 08/25/17 07:30 RBC 4.20 10^6/uL (3.5-6.1) 08/25/17 07:30 Hgb 12.4 g/dL (14.0-18.0) L 08/25/17 07:30 Hct 36.9 % (42.0-52.0) L 08/25/17 07:30 MCV 87.9 fl (80.0-105.0) 08/25/17 07:30 MCH 29.5 pg (25.0-35.0) 08/25/17 07:30 MCHC 33.6 g/dl (31.0-37.0) 08/25/17 07:30 RDW 12.9 % (11.5-14.5) 08/25/17 07:30 Plt Count 251 10^3/uL (120.0-450.0) 08/25/17 07:30 MPV 8.7 fl (7.0-11.0) 08/25/17 07:30 Gran % 54.5 % (50.0-68.0) 08/25/17 07:30 Lymph % (Auto) 27.0 % (22.0-35.0) 08/25/17 07:30 Tyrrell % (Auto) 15.0 % (1.0-6.0) H 08/25/17 07:30 Eos % (Auto) 3.1 % (1.5-5.0) 08/25/17 07:30 Baso % (Auto) 0.4 % (0.0-3.0) 08/25/17 07:30 Gran # 3.72 (1.4-6.5) 08/25/17 07:30 Lymph # (Auto) 1.8 (1.2-3.4) 08/25/17 07:30 Tyrrell # (Auto) 1.0 (0.1-0.6) H 08/25/17 07:30 Eos # (Auto) 0.2 (0.0-0.7) 08/25/17 07:30 Baso # (Auto) 0.03 K/mm3 (0.0-2.0) 08/25/17 07:30 PT 13.3 SECONDS (9.4-12.5) H 08/23/17 00:38 INR 1.16 (0.93-1.08) H 08/23/17 00:38 APTT 32.2 Seconds (25.1-36.5) 08/23/17 00:38 pO2 58 mm/Hg (30-55) H 08/23/17 07:30 VBG pH 7.43 (7.32-7.43) 08/23/17 07:30 VBG pCO2 39.0 (40-60) L 08/23/17 07:30 VBG HCO3 25.9 mmol/l (21-28) 08/23/17 07:30 VBG Total CO2 27.1 mmol.L (22-28) 08/23/17 07:30 VBG O2 Sat (Calc) 93.6 % (40-65) H 08/23/17 07:30 VBG Base Excess 1.5 mmol/L (0.0-2.0) 08/23/17 07:30 VBG Potassium 4.3 mmol/L (3.6-5.2) 08/23/17 07:30 Sodium 140.0 mmol/L (132-148) 08/23/17 07:30 Chloride 108.0 mmol/L (98-107) H 08/23/17 07:30 Glucose 117 mg/dl (75-110) H 08/23/17 07:30 Lactate 1.5 mmol/L (0.7-2.1) 08/23/17 07:30 FiO2 21.0 % 08/23/17 07:30 Sodium 146 mmol/L (132-148) 08/25/17 07:00 Potassium 4.3 mmol/L (3.6-5.0) 08/25/17 07:00 Chloride 106 mmol/L (98-107) 08/25/17 07:00 Carbon Dioxide 28 mmol/L (21-33) 08/25/17 07:00 Anion Gap 16 (10-20) 08/25/17 07:00 BUN 11 mg/dL (7-21) 08/25/17 07:00 Creatinine 0.9 mg/dl (0.8-1.5) 08/25/17 07:00 Est GFR ( Amer) > 60 08/25/17 07:00 Est GFR (Non-Af Amer) > 60 08/25/17 07:00 Random Glucose 101 mg/dL (70-110) 08/25/17 07:00 Calcium 9.7 mg/dL (8.4-10.5) 08/25/17 07:00 Phosphorus 3.2 mg/dL (2.5-4.5) 08/25/17 07:00 Magnesium 2.4 mg/dL (1.7-2.2) H 08/25/17 07:00 Total Bilirubin 0.4 mg/dL (0.2-1.3) 08/25/17 07:00 AST 31 U/L (17-59) 08/25/17 07:00 ALT 40 U/L (7-56) 08/25/17 07:00 Alkaline Phosphatase 72 U/L (38-126) 08/25/17 07:00 Total Creatine Kinase 52 U/L (35-230) 08/23/17 07:30 Total Protein 7.2 g/dL (5.8-8.3) 08/25/17 07:00 Albumin 4.0 g/dL (3.0-4.8) 08/25/17 07:00 Globulin 3.3 gm/dL 08/25/17 07:00 Albumin/Globulin Ratio 1.2 (1.1-1.8) 08/25/17 07:00 Procalcitonin 0.61 NG/ML (0.19-0.49) H 08/23/17 00:38 Venous Blood Potassium 4.3 mmol/L (3.6-5.2) 08/23/17 07:30 Urine Color Yellow (YELLOW) 08/23/17 00:38 Urine Appearance Sl cloudy (CLEAR) 08/23/17 00:38 Urine pH 6.5 (4.7-8.0) 08/23/17 00:38 Ur Specific Garrett <= 1.005 (1.005-1.035) 08/23/17 00:38 Urine Protein 30 mg/dL (<30 mg/dL) H 08/23/17 00:38 Urine Glucose (UA) Negative mg/dL (NEGATIVE) 08/23/17 00:38 Urine Ketones Negative mg/dL (NEGATIVE) 08/23/17 00:38 Urine Blood Large (NEGATIVE) H 08/23/17 00:38 Urine Nitrate Positive (NEGATIVE) H 08/23/17 00:38 Urine Bilirubin Negative (NEGATIVE) 08/23/17 00:38 Urine Urobilinogen 0.2 E.U./dL (<1 E.U./dL) 08/23/17 00:38 Ur Leukocyte Esterase Large Monica/uL (NEGATIVE) H 08/23/17 00:38 Urine RBC 2 - 5 /hpf (0-2) 08/23/17 00:38 Urine WBC 5 - 10 /hpf (0-6) 08/23/17 00:38 Ur Epithelial Cells 0 - 2 /hpf (0-5) 08/23/17 00:38 Urine Bacteria Small (NEG) 08/23/17 00:38 HIV 1&2 Ag/Ab, 4th Gen Nonreactive (Nonreactive) 08/23/17 07:30 Attending/Attestation - Attestation I have personally seen and examined this patient.: Yes I have fully participated in the care of the patient.: Yes I have reviewed all pertinent clinical information, including history, physical exam and plan: Yes Notes (Text): 08/25/17 16:46 31 year old male with past medical history of rhabdomyosarcoma in remission, nephrolithiasis and ureteral stent placement (08/16/17) who presented with fever secondary to UTI. He was started on iv antibiotics. Leukocytosis improved and fever came down. UCx grew klebsiella. He was being followed by ID. Case was also discussed with his urologist and erickson was removed. Patient is discharged home to follow up at [facility] next week. Continue with po antibiotics. Follow up with urology. Anmol Riley MD Hospitalist.
--- NOTE | 2017-08-25 16:23 | CP.PCM.PN ---
Subjective - Date & Time of Evaluation Date of Evaluation: 08/25/17 Time of Evaluation: 11:40 - Subjective Subjective: No fevers, not in distress. Objective - Vital Signs/Intake and Output Vital Signs (last 24 hours): Temp Pulse Resp BP Pulse Ox 98.6 F 76 20 128/81 96 08/25/17 06:00 08/25/17 06:00 08/25/17 06:00 08/25/17 06:00 08/25/17 06:00 Intake and Output: 08/25/17 08/25/17 06:59 18:59 Intake Total 860 Balance 860 - Medications Medications: Current Medications Acetaminophen (Tylenol 325mg Tab) 650 mg PO Q4H PRN PRN Reason: Fever >100.4 F Last Admin: 08/23/17 15:41 Dose: 650 mg Enoxaparin Sodium (Lovenox) 40 mg SC DAILY GRAHAM PRN Reason: Protocol Last Admin: 08/25/17 09:59 Dose: 40 mg Meropenem (Merrem Iv 1 Gm Premix) 50 mls @ 100 mls/hr IVPB Q8 GRAHAM PRN Reason: Protocol Stop: 08/30/17 06:01 Last Admin: 08/25/17 05:17 Dose: 100 mls/hr Ondansetron HCl (Zofran Inj) 4 mg IVP Q4H PRN PRN Reason: Nausea/Vomiting Pantoprazole Sodium (Protonix Ec Tab) 40 mg PO ACB GRAHAM Last Admin: 08/24/17 09:39 Dose: 40 mg - Labs Labs: 08/25/17 07:30 08/25/17 07:00 PT 13.3 SECONDS (9.4-12.5) H 08/23/17 00:38 INR 1.16 (0.93-1.08) H 08/23/17 00:38 APTT 32.2 Seconds (25.1-36.5) 08/23/17 00:38 - Constitutional Appears: Non-toxic, Chronically Ill - Head Exam Head Exam: NORMAL INSPECTION - Respiratory Exam Respiratory Exam: Decreased Breath Sounds - Cardiovascular Exam Cardiovascular Exam: +S1, +S2 - GI/Abdominal Exam GI & Abdominal Exam: Soft. absent: Tenderness Assessment and Plan - Assessment and Plan (Free Text) Plan: Assessment consider sepsis due to complicated UTI associated with Erickson catheter use, growing Klebsiella in the urine, S/P erickson catheter removal rhabdomyosarcoma history of nephrolithiasis with obstruction S/P ureteral stent placement Plan on Merrem - when ready for discharge, can be switched to PO Ciprofloxacin for another 10 days with outpatient follow up with PMD and Urologist
[2017-08-25 17:17] VITALS: BP 121/72; PULSE 79; TEMP 97.7; O2SAT 99
== END 2017-08-25 18:47 | disposition home or self-care (01) | DRG 700 ==
LOC: ED 22:59 → ERH 08-23 03:07 → 5RSO 08-23 05:21
PROVIDERS: ADMIT Internal Medicine; ATTEND Internal Medicine
DX: T83.511A Infection and inflammatory reaction due to indwelling urethral catheter, initial encounter (principal); N39.0 Urinary tract infection, site not specified; B96.1 Klebsiella pneumoniae [K. pneumoniae] as the cause of diseases classified elsewhere; N20.0 Calculus of kidney; Y84.6 Urinary catheterization as the cause of abnormal reaction of the patient, or of later complication, without mention of misadventure at the time of the procedure; Z85.528 Personal history of other malignant neoplasm of kidney; Z92.3 Personal history of irradiation; Z96.641 Presence of right artificial hip joint